=== PATIENT | female | born 1945 | race Caucasian/White ===

== ENCOUNTER 2023-01-24 07:26 | Observation (INO) | payer OTHER ==
--- OUTSIDE RECORDS SUMMARY | 2023-01-24 07:32 | XMS REPORT | Continuity of Care Document ---
:1945 Author Organization [facility] t Address [address] [place] [address] Care Team Providers Name Role Phone Tyshawn Kelley Attending Clinician [email or web address] Attending Clinician Unavailable ALBA JEFFERSON Attending Clinician Unavailable Alba Jefferson Attending Clinician Alba Jefferson Attending Clinician [phone] Lavinia Lei MD Attending Clinician LAVINIA LEI Attending Clinician Unavailable [email or web address] Admitting Clinician Unavailable ALBA JEFFERSON Admitting Clinician Unavailable Alba Jefferson Admitting Clinician Payers Payer Name Policy Type Policy Number Effective Date Expiration Date Karla emerson AETREED (MEDICARE [id number] 2021 REPLACEMENT PPO) 00:00:00 Problems Condition Condition Condition Status Onset Resolution Last Treating Co mments Source Name Details Category Date Date Treatment Clinician Date Abdominal Abdominal Problem Active 2021-08 [place] via pain Pain 0-20 Medical 00:00: 00 N82.3 N82.3 Diagnosis Active 2022-04-21 Mem oria Active 04-03 07:13:00 l 04/03/2022 00:00: Melvin herrera [facility] 00 Pike FISTULA OF FISTULA Diagnosis Active 2022-04-21 Memoria VAGINA TO OF VAGINA 07:13:00 l LARGE TO LARGE Jun INTESTINE INTESTINE Active [facility] Headache Headache Problem Active 2023-01-18 Memoria (finding) (finding) 11:37:24 l Active Jun Problem 01/18/2023 [facility] Distortion Distortio Problem Active 2023-01-18 Memoria of visual n of 11:37:24 l image visual [place] (disorder) image (disorder) Active Problem 01/18/2023 [facility] Seizure Seizure Problem Active 2023-01-18 Me moria (finding) (finding) 11:37:24 l Active Jun Problem 01/18/2023 [facility] No known No known Disease Unive rs active active ity of problems problems [facility] [place] [facility] Allergies, Adverse Reactions, Alerts Allergy Allergy Status Severity Reaction(s) Onset Inactive Treating Comm ents Source Name Type Date Date Clinician Ibuprofe Propensi Active Rash Univer s n ty to 6-13 ity of adverse 00:00: [place] reaction 00 Medical s Branch IBUPROFE DRUG Active Rash Univers N INGREDI 6-13 ity of 00:00: [place] 00 [facility] ciproflo ciproflo Active Memori a xacin xacin l [place] Social History Social Habit Start Date Stop Date Quantity Comments Source Sex Assigned At [facility] Social History 2022-04-10 2022-04-10 [facility] Niru wittirma 20:01:40 20:01:40 Alcohol intake 2017-02-08 2017-02-08 [facility] 00:00:00 00:00:00 Medical Branch Smoking Status Start Date Stop Date Source Tobacco smoking status [facility] Medications Ordered Filled Start Stop Current Ordering Indication Dosage Frequency Signature Comments Components Source Medication Medication Date Date Medication? Clinician (SIG) Name Name neostigmine No Route: IV, Memoria (ANES) 04-20 Drug form: l 18:58: INJ, ONCE, Stop date: 04/20/22 13:58:00 CDT neostigmine No Route: IV, Memoria (ANES) 04-20 Drug form: l 18:58: INJ, ONCE, Stop date: 04/20/22 13:58:00 CDT neostigmine No Route: IV, Memoria (ANES) 04-20 Drug form: l 18:58: INJ, ONCE, Stop date: 04/20/22 13:58:00 CDT neostigmine 2021-0 No Route: IV, Memoria (ANES) 04-20 Drug form: l 18:58: INJ, ONCE, Stop date: 04/20/22 13:58:00 CDT neostigmine 2021-0 No Route: IV, Memoria (ANES) 04-20 Drug form: l 18:58: INJ, ONCE, Stop date: 04/20/22 13:58:00 CDT neostigmine 2021-0 No Route: IV, Memoria (ANES) 04-20 Drug form: l 18:58: INJ, ONCE, Stop date: 04/20/22 13:58:00 CDT norepinephr 2021-0 No Route: IV, Memoria ine (ANES) 04-20 Drug form: l 18:54: INJ, ONCE, Stop date: 04/20/22 13:54:00 CDT norepinephr 2021-0 No Route: IV, Memoria ine (ANES) 04-20 Drug form: l 18:54: INJ, ONCE, Stop date: 04/20/22 13:54:00 CDT norepinephr 2021-0 No Route: IV, Memoria ine (ANES) 04-20 Drug form: l 18:54: INJ, ONCE, Stop date: 04/20/22 13:54:00 CDT norepinephr 2021-0 No Route: IV, Memoria ine (ANES) 04-20 Drug form: l 18:54: INJ, ONCE, Stop date: 04/20/22 13:54:00 CDT norepinephr 2021-0 No Route: IV, Memoria ine (ANES) 04-20 Drug form: l 18:54: INJ, ONCE, Stop date: 04/20/22 13:54:00 CDT norepinephr 2021-0 No Route: IV, Memoria ine (ANES) 04-20 Drug form: l 18:54: INJ, ONCE, Stop date: 04/20/22 13:54:00 CDT esmolol 2021-0 No Route: IV, Marco A mega (ANES) 04-20 Drug form: l 18:08: INJ, ONCE, Stop date: 04/20/22 13:08:00 CDT esmolol 2021-0 No Route: IV, Marco A mega (ANES) 04-20 Drug form: l 18:08: INJ, ONCE, Stop date: 04/20/22 13:08:00 CDT esmolol 2021-0 No Route: IV, Marco A mega (ANES) 04-20 Drug form: l 18:08: INJ, ONCE, Stop date: 04/20/22 13:08:00 CDT esmolol 2021-0 No Route: IV, Marco A mega (ANES) 04-20 Drug form: l 18:08: INJ, ONCE, Stop date: 04/20/22 13:08:00 CDT esmolol 2021-0 No Route: IV, Marco A mega (ANES) 04-20 Drug form: l 18:08: INJ, ONCE, Stop date: 04/20/22 13:08:00 CDT esmolol 2021-0 No Route: IV, Marco A mega (ANES) 04-20 Drug form: l 18:08: INJ, ONCE, Stop date: 04/20/22 13:08:00 CDT ePHEDrine 2021-0 No Route: IV, Me moria (ANES) 04-20 Drug form: l 18:03: INJ, ONCE, Stop date: 04/20/22 13:03:00 CDT glycopyrrol 2021-0 No Route: IV, Memoria ate (ANES) 04-20 Drug form: l 18:03: INJ, ONCE, Stop date: 04/20/22 13:03:00 CDT glycopyrrol 2021-0 No Route: IV, Memoria ate (ANES) 04-20 Drug form: l 18:03: INJ, ONCE, Stop date: 04/20/22 13:03:00 CDT ePHEDrine 2021-0 No Route: IV, Me moria (ANES) 04-20 Drug form: l 18:03: INJ, ONCE, Stop date: 04/20/22 13:03:00 CDT glycopyrrol 0 No Route: IV, Memoria ate (ANES) 04-20 Drug form: l 18:03: INJ, ONCE, Stop date: 04/20/22 13:03:00 CDT ePHEDrine 2021-0 No Route: IV, Me moria (ANES) 04-20 Drug form: l 18:03: INJ, ONCE, Stop date: 04/20/22 13:03:00 CDT glycopyrrol 2021-0 No Route: IV, Memoria ate (ANES) 04-20 Drug form: l 18:03: INJ, ONCE, Stop date: 04/20/22 13:03:00 CDT ePHEDrine 2021-0 No Route: IV, Me moria (ANES) 04-20 Drug form: l 18:03: INJ, ONCE, Stop date: 04/20/22 13:03:00 CDT glycopyrrol 2021-0 No Route: IV, Memoria ate (ANES) 04-20 Drug form: l 18:03: INJ, ONCE, Stop date: 04/20/22 13:03:00 CDT ePHEDrine 0 No Route: IV, Me moria (ANES) 04-20 Drug form: l 18:03: INJ, ONCE, Stop date: 04/20/22 13:03:00 CDT glycopyrrol 2021-0 No Route: IV, Memoria ate (ANES) 04-20 Drug form: l 18:03: INJ, ONCE, Stop date: 04/20/22 13:03:00 CDT ePHEDrine 2021-0 No Route: IV, Me moria (ANES) 04-20 Drug form: l 18:03: INJ, ONCE, Stop date: 04/20/22 13:03:00 CDT rocuronium 2021-0 No Route: IV, M emoria (ANES) 04-20 Drug form: l 17:43: INJ, ONCE, Stop date: 04/20/22 12:43:00 CDT dexamethaso 0 No Route: IV, Memoria ne (ANES) 04-20 Drug form: l 17:43: INJ, ONCE, Stop date: 04/20/22 12:43:00 CDT rocuronium 2021-0 No Route: IV, M emoria (ANES) 04-20 Drug form: l 17:43: INJ, ONCE, Stop date: 04/20/22 12:43:00 CDT dexamethaso 0 No Route: IV, Memoria ne (ANES) 04-20 Drug form: l 17:43: INJ, ONCE, Stop date: 04/20/22 12:43:00 CDT lidocaine 0 No Route: IV, Me moria (ANES) 04-20 Drug form: l 17:43: INJ, ONCE, Stop date: 04/20/22 12:43:00 CDT rocuronium 2021-0 No Route: IV, M emoria (ANES) 04-20 Drug form: l 17:43: INJ, ONCE, Stop date: 04/20/22 12:43:00 CDT dexamethaso 2021-0 No Route: IV, Memoria ne (ANES) 04-20 Drug form: l 17:43: INJ, ONCE, Stop date: 04/20/22 12:43:00 CDT lidocaine 2021-0 No Route: IV, Me moria (ANES) 04-20 Drug form: l 17:43: INJ, ONCE, Stop date: 04/20/22 12:43:00 CDT rocuronium 2021-0 No Route: IV, M emoria (ANES) 04-20 Drug form: l 17:43: INJ, ONCE, Stop date: 04/20/22 12:43:00 CDT dexamethaso 2021-0 No Route: IV, Memoria ne (ANES) 04-20 Drug form: l 17:43: INJ, ONCE, Stop date: 04/20/22 12:43:00 CDT lidocaine 2021-0 No Route: IV, Me moria (ANES) 04-20 Drug form: l 17:43: INJ, ONCE, Stop date: 04/20/22 12:43:00 CDT rocuronium 0 No Route: IV, M emoria (ANES) 04-20 Drug form: l 17:43: INJ, ONCE, Stop date: 04/20/22 12:43:00 CDT dexamethaso 0 No Route: IV, Memoria ne (ANES) 04-20 Drug form: l 17:43: INJ, ONCE, Stop date: 04/20/22 12:43:00 CDT lidocaine 0 No Route: IV, Me moria (ANES) 04-20 Drug form: l 17:43: INJ, ONCE, Stop date: 04/20/22 12:43:00 CDT rocuronium 0 No Route: IV, M emoria (ANES) 04-20 Drug form: l 17:43: INJ, ONCE, Stop date: 04/20/22 12:43:00 CDT dexamethaso No Route: IV, Memoria ne (ANES) 04-20 Drug form: l 17:43: INJ, ONCE, Stop date: 04/20/22 12:43:00 CDT lidocaine 0 No Route: IV, Me moria (ANES) 04-20 Drug form: l 17:43: INJ, ONCE, Stop date: 04/20/22 12:43:00 CDT lidocaine 2021-0 No Route: IV, Me moria (ANES) 04-20 Drug form: l 17:43: INJ, ONCE, Stop date: 04/20/22 12:43:00 CDT cefOXitin 2021-0 No Route: IV, Me moria (ANES) 04-20 Drug form: l 17:33: INJ, ONCE, Stop date: 04/20/22 12:33:00 CDT ondansetron No Route: IV, Memoria (ANES) 04-20 Drug form: l 17:33: INJ, ONCE, Stop date: 04/20/22 12:33:00 CDT cefOXitin 2021-0 No Route: IV, Me moria (ANES) 04-20 Drug form: l 17:33: INJ, ONCE, Stop date: 04/20/22 12:33:00 CDT ondansetron 2021-0 No Route: IV, Memoria (ANES) 04-20 Drug form: l 17:33: INJ, ONCE, Stop date: 04/20/22 12:33:00 CDT cefOXitin 2021-0 No Route: IV, Me moria (ANES) 04-20 Drug form: l 17:33: INJ, ONCE, Stop date: 04/20/22 12:33:00 CDT ondansetron 2021-0 No Route: IV, Memoria (ANES) 04-20 Drug form: l 17:33: INJ, ONCE, Stop date: 04/20/22 12:33:00 CDT cefOXitin 2021-0 No Route: IV, Me moria (ANES) 04-20 Drug form: l 17:33: INJ, ONCE, Stop date: 04/20/22 12:33:00 CDT ondansetron 2021-0 No Route: IV, Memoria (ANES) 04-20 Drug form: l 17:33: INJ, ONCE, Stop date: 04/20/22 12:33:00 CDT cefOXitin 2021-0 No Route: IV, Me moria (ANES) 04-20 Drug form: l 17:33: INJ, ONCE, Stop date: 04/20/22 12:33:00 CDT ondansetron 2021-0 No Route: IV, Memoria (ANES) 04-20 Drug form: l 17:33: INJ, ONCE, Stop date: 04/20/22 12:33:00 CDT cefOXitin 2021-0 No Route: IV, Me moria (ANES) 04-20 Drug form: l 17:33: INJ, ONCE, Stop date: 04/20/22 12:33:00 CDT ondansetron 2021-0 No Route: IV, Memoria (ANES) 04-20 Drug form: l 17:33: INJ, ONCE, Stop date: 04/20/22 12:33:00 CDT fentaNYL 2021-0 No Route: IV, Mem oria (ANES) 9- Drug form: l 17:28: INJ, ONCE, Stop date: 04/20/22 12:28:00 CDT propofol 2021-0 No Route: IV, Mem oria (ANES) 9- Drug form: l 17:28: INJ, ONCE, Stop date: 04/20/22 12:28:00 CDT fentaNYL 2021-0 No Route: IV, Mem oria (ANES) 9- Drug form: l 17:28: INJ, ONCE, Stop date: 04/20/22 12:28:00 CDT propofol 2021-0 No Route: IV, Mem oria (ANES) 9- Drug form: l 17:28: INJ, ONCE, Stop date: 04/20/22 12:28:00 CDT fentaNYL 2021-0 No Route: IV, Mem oria (ANES) 04-20 Drug form: l 17:28: INJ, ONCE, Stop date: 04/20/22 12:28:00 CDT propofol 2021-0 No Route: IV, Mem oria (ANES) 04-20 Drug form: l 17:28: INJ, ONCE, Stop date: 04/20/22 12:28:00 CDT fentaNYL 2021-0 No Route: IV, Mem oria (ANES) 9- Drug form: l 17:28: INJ, ONCE, Stop date: 04/20/22 12:28:00 CDT propofol 202-0 No Route: IV, Mem oria (ANES) 9- Drug form: l 17:28: INJ, ONCE, Stop date: 04/20/22 12:28:00 CDT fentaNYL 2021-0 No Route: IV, Mem oria (ANES) 9- Drug form: l 17:28: INJ, ONCE, Stop date: 04/20/22 12:28:00 CDT propofol 202-0 No Route: IV, Mem oria (ANES) 9- Drug form: l 17:28: INJ, ONCE, Stop date: 04/20/22 12:28:00 CDT fentaNYL 2022-0 No Route: IV, Mem oria (ANES) 9-19 Drug form: l 17:28: INJ, ONCE, Jun 00 Stop date: 04/20/22 12:28:00 CDT propofol No Route: IV, Mem oria (ANES) 9-19 Drug form: l 17:28: INJ, ONCE, Jun 00 Stop date: 04/20/22 12:28:00 CDT Lactated No Route: IV, Mem oria Ringers 9-19 Total l Injection 16:50: Volume: Margie nn IV (ANES) 00 1,000, 1000 mL Start date: 04/20/22 11:50:00 CDT, Stop date: 04/20/22 12:50:00 CDT Lactated No Route: IV, Mem oria Ringers 9-19 Total l Injection 16:50: Volume: Margie nn IV (ANES) 00 1,000, 1000 mL Start date: 04/20/22 11:50:00 CDT, Stop date: 04/20/22 12:50:00 CDT Lactated No Route: IV, Mem oria Ringers 9-19 Total l Injection 16:50: Volume: Margie nn IV (ANES) 00 1,000, 1000 mL Start date: 04/20/22 11:50:00 CDT, Stop date: 04/20/22 12:50:00 CDT Lactated No Route: IV, Mem oria Ringers 9-19 Total l Injection 16:50: Volume: Margie nn IV (ANES) 00 1,000, 1000 mL Start date: 04/20/22 11:50:00 CDT, Stop date: 04/20/22 12:50:00 CDT Lactated No Route: IV, Mem oria Ringers 9-19 Total l Injection 16:50: Volume: Margie nn IV (ANES) 00 1,000, 1000 mL Start date: 04/20/22 11:50:00 CDT, Stop date: 04/20/22 12:50:00 CDT Lactated No Route: IV, Mem oria Ringers 9-19 Total l Injection 16:50: Volume: Margie nn IV (ANES) 00 1,000, 1000 mL Start date: 04/20/22 11:50:00 CDT, Stop date: 04/20/22 12:50:00 CDT Lactated 2022-0 No 1,000 mL, Marco A mega Ringers 9-19 Rate: 75 l Injection 16:38: ml/hr, Melvin n IV 1,000 mL 00 Infuse over: 13.3 hr, Route: IV, Dosing Weight 71.045 kg, Total Volume: 1,000, Start date: 04/20/22 11:38:00 CDT, Duration: 30 day, Stop date: 05/20/22 11:37:00 CDT, BSA: 1.81 m2, 0 Lactated 2022-0 No 1,000 mL, Marco A mega Ringers 9-19 Rate: 75 l Injection 16:38: ml/hr, Melvin n IV 1,000 mL 00 Infuse over: 13.3 hr, Route: IV, Dosing Weight 71.045 kg, Total Volume: 1,000, Start date: 04/20/22 11:38:00 CDT, Duration: 30 day, Stop date: 05/20/22 11:37:00 CDT, BSA: 1.81 m2, 0 Lactated 2022-0 No 1,000 mL, Marco A mega Ringers 9-19 Rate: 75 l Injection 16:38: ml/hr, Melvin n IV 1,000 mL 00 Infuse over: 13.3 hr, Route: IV, Dosing Weight 71.045 kg, Total Volume: 1,000, Start date: 04/20/22 11:38:00 CDT, Duration: 30 day, Stop date: 05/20/22 11:37:00 CDT, BSA: 1.81 m2, 0 Lactated 2022-0 No 1,000 mL, Marco A meag Ringers 9-19 Rate: 75 l Injection 16:38: ml/hr, Melvin n IV 1,000 mL 00 Infuse over: 13.3 hr, Route: IV, Dosing Weight 71.045 kg, Total Volume: 1,000, Start date: 04/20/22 11:38:00 CDT, Duration: 30 day, Stop date: 05/20/22 11:37:00 CDT, BSA: 1.81 m2, 0 Lactated 2022-0 No 1,000 mL, Marco A mega Ringers 04-20 Rate: 75 l Injection 16:38: ml/hr, Melvin n IV 1,000 mL 00 Infuse over: 13.3 hr, Route: IV, Dosing Weight 71.045 kg, Total Volume: 1,000, Start date: 04/20/22 11:38:00 CDT, Duration: 30 day, Stop date: 05/20/22 11:37:00 CDT, BSA: 1.81 m2, 0 Lactated 0 No 1,000 mL, Marco A mega [place] 04-20 Rate: 75 l Injection 16:38: ml/hr, Melvin n IV 1,000 mL 00 Infuse over: 13.3 hr, Route: IV, Dosing Weight 71.045 kg, Total Volume: 1,000, Start date: 04/20/22 11:38:00 CDT, Duration: 30 day, Stop date: 05/20/22 11:37:00 CDT, BSA: 1.81 m2, 0 CoQ10 0 Yes PO, Daily, Memori a 9-09 0 l 20:16: Refill(s) [place]ike selenium 0 Yes PO, Daily, Mem oria 9-09 0 l 20:16: Refill(s) Jun Vitamin C 0 Yes Daily, 0 Marco A mega 9-09 Refill(s) l 20:16: [place] 00 Vitamin D3 0 Yes 0 Memoria 9-09 Refill(s) l 20:16: Jun 00 CoQ10 2021-0 Yes PO, Daily, Memori a 9-09 0 l 20:16: Refill(s) Jun selenium 2021-0 Yes PO, Daily, Mem oria 9-09 0 l 20:16: Refill(s) [place] Vitamin C 2021-0 Yes Daily, 0 Marco A mega 9-09 Refill(s) l 20:16: Jun 00 Vitamin D3 2021-0 Yes 0 Memoria 9-09 Refill(s) l 20:16: Jun 00 CoQ10 2021-0 Yes PO, Daily, Memori a 9-09 0 l 20:16: Refill(s) Jun 00 selenium 2021-0 Yes PO, Daily, Mem oria 9-09 0 l 20:16: Refill(s) Vitamin C 0 Yes Daily, 0 Marco A mega 9-09 Refill(s) l 20:16: Vitamin D3 0 Yes 0 Memoria 9-09 Refill(s) l 20:16: CoQ10 0 Yes PO, Daily, Memori a 9-09 0 l 20:16: Refill(s) selenium 0 Yes PO, Daily, Mem oria 9-09 0 l 20:16: Refill(s) Vitamin C 0 Yes Daily, 0 Marco A mega 9-09 Refill(s) l 20:16: Vitamin D3 Yes 0 Memoria 9-09 Refill(s) l 20:16: CoQ10 0 Yes PO, Daily, Memori a 9-09 0 l 20:16: Refill(s) selenium 0 Yes PO, Daily, Mem oria 9-09 0 l 20:16: Refill(s) Vitamin C 0 Yes Daily, 0 Marco A mega 9-09 Refill(s) l 20:16: Vitamin D3 0 Yes 0 Memoria 9-09 Refill(s) l 20:16: Vitamin C 0 Yes Daily, 0 Marco A mega 9-09 Refill(s) l 20:16: Vitamin D3 0 Yes 0 Memoria 9-09 Refill(s) l 20:16: CoQ10 0 Yes PO, Daily, Memori a 9-09 0 l 20:16: Refill(s) selenium 2021-0 Yes PO, Daily, Mem oria 9-09 0 l 20:16: Refill(s) Zinc 0 Yes 140 mg, Memoria - PO, Daily, l 20:15: 0 Refill(s) Zinc 0 Yes 140 mg, Memoria - PO, Daily, l 20:15: 0 Refill(s) Zinc 0 Yes 140 mg, Memoria 9- PO, Daily, l 20:15: 0 Refill(s) Zinc 2021-0 Yes 140 mg, Memoria 04-10 PO, Daily, l 20:15: 0 Refill(s) Zinc 2021-0 Yes 140 mg, Memoria - PO, Daily, l 20:15: 0 [place] 00 Refill(s) Zinc 2021-0 Yes 140 mg, Memoria 04-10 PO, Daily, l 20:15: 0 Refill(s) amoxicillin 2019-0 Yes [id number] 500mg Take 1 Univers 500 mg 3-28 capsule by ity of capsule 00:00: mouth 3 [place] (three) [facility] times [facility] daily. phenazopyri Yes [id number] 200mg Take 1 Univers dine 200 mg 3-28 tablet by ity of tablet 00:00: mouth 3 [place] ([facility] daily. foLIC acid Yes 1mg Take 1 mg Un ashok 1 mg tablet 7-05 by mouth ity of 18:05: daily. [address] multivitami Yes 1{tbl} Take 1 Un ashok n, 7-05 tablet by ity of tx-minerals 18:05: mouth [place] ([place] [id number] daily. Medical MULTIVITAMI Branch N) tablet simvastatin Yes 20mg Take 20 mg Univers 20 mg 7-05 by mouth ity of tablet 18:05: daily. [address] cephalexin cephalexin No 1capsul Q6H cephalexin [facility] 500 mg 500 mg e(s) 500 mg Medical capsule capsule capsule Take 1 Take 1 Take 1 capsule capsule capsule every 6 every 6 every 6 hours by hours by hours by oral route oral route oral route for 5 days. for 5 days. for 5 days. Co Q-10 Co Q-10 No Co Q-10 [facility] hydrocodone hydrocodone No hydrocodon [facility] 5 5 e 5 Medical mg-acetamin mg-acetamin mg-acetami ophen 325 ophen 325 nophen 325 mg tablet mg tablet mg tablet TAKE 1 TAKE 1 TAKE 1 TABLET BY TABLET BY TABLET BY MOUTH EVERY MOUTH EVERY MOUTH 6 HOURS FOR 6 HOURS FOR EVERY 6 5 DAYS 5 DAYS HOURS FOR 5 DAYS ketorolac ketorolac No 1 Q6H ketorolac [facility] 10 mg 10 mg 10 mg Medical tablet Take tablet Take tablet 1 tablet 1 tablet Take 1 every 6 every 6 tablet hours by hours by every 6 oral route oral route hours by for 5 days. for 5 days. oral route for 5 days. metronidazo metronidazo No metronidaz [facility] le 500 mg le 500 mg ole 500 mg Medical tablet TAKE tablet TAKE tablet 1 TABLET BY 1 TABLET BY TAKE 1 MOUTH AT MOUTH AT TABLET BY 2PM, 3PM, 2PM, 3PM, MOUTH AT AND 10PM AND 10PM 2PM, 3PM, THE DAY THE DAY AND 10PM BEFORE BEFORE THE DAY SURGERY SURGERY BEFORE SURGERY neomycin neomycin No neomycin [place] via 500 mg 500 mg 500 mg Medical tablet TAKE tablet TAKE tablet 2 TABLETS 2 TABLETS TAKE 2 BY MOUTH AT BY MOUTH AT TABLETS BY 2PM,3PM AND 2PM,3PM AND MOUTH AT 10PM, THE 10PM, THE 2PM,3PM DAY BEFORE DAY BEFORE AND 10PM, SURGERY SURGERY THE DAY BEFORE SURGERY Suprep Suprep No Suprep [facility] Bowel Prep Bowel Prep Bowel Prep Medical Kit 17.5 Kit 17.5 Kit 17.5 gram-3.13 gram-3.13 gram-3.13 gram-1.6 gram-1.6 gram-1.6 gram oral gram oral gram oral solution solution solution TAKE 1 TAKE 1 TAKE 1 BOTTLE BY BOTTLE BY BOTTLE BY MOUTH 12PM MOUTH 12PM MOUTH 12PM (NOON), THE (NOON), THE (NOON), DAY BEFORE DAY BEFORE THE DAY SURGERY SURGERY BEFORE SURGERY Suprep Suprep No 16ounce Suprep [facility] Bowel Prep Bowel Prep (s) Bowel Prep Medical Kit 17.5 Kit 17.5 Kit 17.5 gram-3.13 gram-3.13 gram-3.13 gram-1.6 gram-1.6 gram-1.6 gram oral gram oral gram oral solution solution solution Take 16 Take 16 Take 16 ounces by ounces by ounces by oral route. oral route. oral route. amoxicillin amoxicillin No amoxicilli [facility] 500 500 n 500 Medical mg-potassiu mg-potassiu mg-potassi m m um clavulanate clavulanate clavulanat 125 mg 125 mg e 125 mg tablet tablet tablet cephalexin cephalexin No cephalexin [facility] 500 mg 500 mg 500 mg Medical capsule capsule capsule TAKE 1 TAKE 1 TAKE 1 CAPSULE BY CAPSULE BY CAPSULE BY MOUTH EVERY MOUTH EVERY MOUTH 6 HOURS FOR 6 HOURS FOR EVERY 6 5 DAYS 5 DAYS HOURS FOR 5 DAYS Co Q-10 Co Q-10 No Co Q-10 [facility] hydrocodone hydrocodone No hydrocodon [facility] 5 5 e 5 Medical mg-acetamin mg-acetamin mg-acetami ophen 325 ophen 325 nophen 325 mg tablet mg tablet mg tablet TAKE 1 TAKE 1 TAKE 1 TABLET BY TABLET BY TABLET BY MOUTH EVERY MOUTH EVERY MOUTH 6 HOURS FOR 6 HOURS FOR EVERY 6 5 DAYS 5 DAYS HOURS FOR 5 DAYS ketorolac ketorolac No 1 Q6H ketorolac [facility] 10 mg 10 mg 10 mg Medical tablet Take tablet Take tablet 1 tablet 1 tablet Take 1 every 6 every 6 tablet hours by hours by every 6 oral route oral route hours by for 5 days. for 5 days. oral route for 5 days. metronidazo metronidazo No metronidaz [facility] le 500 mg le 500 mg ole 500 mg Medical tablet TAKE tablet TAKE tablet 1 TABLET BY 1 TABLET BY TAKE 1 MOUTH AT MOUTH AT TABLET BY 2PM, 3PM, 2PM, 3PM, MOUTH AT AND 10PM AND 10PM 2PM, 3PM, THE DAY THE DAY AND 10PM BEFORE BEFORE THE DAY SURGERY SURGERY BEFORE SURGERY neomycin neomycin No neomycin [place] via 500 mg 500 mg 500 mg Medical tablet TAKE tablet TAKE tablet 2 TABLETS 2 TABLETS TAKE 2 BY MOUTH AT BY MOUTH AT TABLETS BY 2PM,3PM AND 2PM,3PM AND MOUTH AT 10PM, THE 10PM, THE 2PM,3PM DAY BEFORE DAY BEFORE AND 10PM, SURGERY SURGERY THE DAY BEFORE SURGERY nystatin nystatin No nystatin [place] via 100,000 100,000 100,000 Medica l unit/gram unit/gram unit/gram topical topical topical cream APPLY cream APPLY cream 1 1 APPLY 1 APPLICATION APPLICATION APPLICATIO EXTERNALLY EXTERNALLY N TWICE A DAY TWICE A DAY EXTERNALLY FOR 10 DAYS FOR 10 DAYS TWICE A DAY FOR 10 DAYS Suprep Suprep No Suprep [facility] Bowel Prep Bowel Prep Bowel Prep Medical Kit 17.5 Kit 17.5 Kit 17.5 gram-3.13 gram-3.13 gram-3.13 gram-1.6 gram-1.6 gram-1.6 gram oral gram oral gram oral solution solution solution TAKE 1 TAKE 1 TAKE 1 BOTTLE BY BOTTLE BY BOTTLE BY MOUTH 12PM MOUTH 12PM MOUTH 12PM (NOON), THE (NOON), THE (NOON), DAY BEFORE DAY BEFORE THE DAY SURGERY SURGERY BEFORE SURGERY Vital Signs Vital Name Observation Time Observation Value Comments Source Height 2022-02-04 00:00:00 64 [in_i] Darwin phillips BMI (Body Mass 2022-02-04 00:00:00 27.5 kg/m2 [facility] Medical Index) Body Weight 2022-02-04 00:00:00 160 [lb_av] Darwin phillips Systolic blood 2019-10-28 14:19:00 145 mm[Hg] [facility] Diastolic blood 2019-10-28 14:19:00 65 mm[Hg] [facility] pressure [facility] Heart rate 2019-10-28 14:19:00 64 /min [facility] Body temperature 2019-10-28 14:19:00 37.5 Danielle [facility] Respiratory rate 2019-10-28 14:19:00 18 /min [facility] Body weight 2019-10-28 14:19:00 73.936 kg [facility] BMI 2019-10-28 14:19:00 27.98 kg/m2 [facility] Oxygen saturation in 2019-10-28 14:19:00 97 /min [facility] Systolic blood 2019-10-28 14:19:00 145 mm[Hg] [facility] Diastolic blood 2019-10-28 14:19:00 65 mm[Hg] [facility] pressure [facility] Heart rate 2019-10-28 14:19:00 64 /min [facility] Body temperature 2019-10-28 14:19:00 37.5 Danielle [facility] Respiratory rate 2019-10-28 14:19:00 18 /min [facility] Body weight 2019-10-28 14:19:00 73.936 kg [facility] BMI 2019-10-28 14:19:00 27.98 kg/m2 [facility] Oxygen saturation in 2019-10-28 14:19:00 97 /min [facility] Arterial blood by [facility] Pulse oximetry Branch Systolic (mm Hg) 2023-01-08 18:29:00 [facility] Diastolic (mm Hg) 2023-01-08 18:29:00 [facility] Heart Rate 2023-01-08 18:29:00 [facility] Height 2023-01-08 18:29:00 5 [ft_i] [facility] Weight 2023-01-08 18:29:00 [facility] BMI Calculated 2023-01-08 18:29:00 [facility] Respitory Rate 2022-04-20 20:25:00 [facility] Systolic (mm Hg) 2022-04-20 20:25:00 [facility] Jun Diastolic (mm Hg) 2022-04-20 20:25:00 [facility] Respitory Rate 2022-04-20 19:45:00 [facility] Respitory Rate 2022-04-20 19:30:00 [facility] Systolic (mm Hg) 2022-04-20 19:30:00 [facility] Jun Diastolic (mm Hg) 2022-04-20 19:30:00 [facility] Systolic (mm Hg) 2022-04-20 19:15:00 [facility] [place] Diastolic (mm Hg) 2022-04-20 19:15:00 [facility] Heart Rate 2022-04-20 16:10:00 [facility] Height 2022-04-20 14:08:00 162.56 cm [facility] Weight 2022-04-20 14:08:00 [facility] BMI Calculated 2022-04-20 14:08:00 [facility] al Jun Height 2022-04-10 19:58:00 162.56 cm [facility] Jun Weight 2022-04-10 19:58:00 [facility] Jun BMI Calculated 2022-04-10 19:58:00 [facility] al Pike Procedures Procedure Date / Time Performing Clinician Source Performed CT, abdomen + pelvis, w/ 2022-02-04 00:00:00 [place] via Medical contrast NOTICE OF PRIVACY 2019-10-28 14:53:46 Doctor Unassigned, No Univ [facility] PRACTICES Name Medical Branch URINALYSIS 2019-10-28 14:29:00 Lavinia Lei o f [facility] CONSENT/REFUSAL FOR 2019-10-28 14:15:17 Doctor Unassigned, No [facility] [place] [facility] Name [facility] Hysterectomy (Ovaries 1969-08-02 00:00:00 [facility] Medical Remain) Tonsillectomy 1954-08-02 00:00:00 [facility] Cystectomy [facility] Repair of vaginal [facility] nn fistula Hysterectomy [facility] Plan of Care Planned Activity Planned Date Details Comments Source Future Appointment 2027-02-11 00:00:00 Edwin Blevins, [address]; [address], [place] [address] Instructions [facility] Medical Encounters Start End Encounter Admission Attending Care Care Encounter Source Date/Time Date/Time Type Type Clinicians Facility Department ID 2023-03-03 2023-03-03 Outpatient MHIE MHIE [id number] Memoria 13:30:00 13:30:00 00 gordon FerroJun 2023-02-19 2023-02-19 Outpatient MHIE MHIE [id number] [facility] 10:15:00 10:15:00 03 gordon Barahona 2023-01-15 2023-01-16 Outpatient MHIE MNA [id number] [facility] 20:30:00 04:59:59 Neurology 04 l Haile Barahona 2023-01-15 2023-01-15 Outpatient ALEX KelleySCHER MHMISCHER [id number] 15:30:00 23:59:59 Tyshawn 04 Ab 2023-01-15 2023-01-15 Ambulatory MHIE MNA [id number] Memoria 18:00:00 18:00:00 Pre-Reg Neurology 02 gordon Barahona 2023-01-15 2023-01-15 Outpatient MHIE MHIE [id number] [facility]oria 15:30:00 15:30:00 04 gordon Barahona 2023-01-15 2023-01-15 Outpatient MHIE MHIE [id number] [facility]oria 13:00:00 13:00:00 02 gordon Barahona 2023-01-15 2023-01-15 Outpatient CHRISTINA KelleyMISCHER MHMISCHER [id number] 13:00:00 13:00:00 Tyshawn 02 Ab 2023-01-08 2023-01-09 Outpatient MHIE MNA [id number] [facility] 18:30:00 04:59:59 Neurology 01 l Graysonmaria e Barahona 2023-01-08 2023-01-08 Outpatient Allie, MISCHER MISCHER [id number] 13:30:00 23:59:59 Tyshawn Oriana Berger 2023-01-08 2023-01-08 Outpatient MHIE MHIE [id number] [facility] 13:30:00 13:30:00 01 gordon Barahona 2022-06-09 2022-06-09 Outpatient GC_BCSS_Isa PRIV PRIV [id number] [facility] 00:00:00 00:00:00 acson_T5 [id number] Medic al 2022-06-09 2022-06-09 Alba [facility]IV [facility] [id number] [facility] 00:00:00 00:00:00 Li [facility] Med carmelita MD: [id number] GC[facility]BCSS[facility], [address], [place] [address] , Ph. 2022-06-05 2022-06-05 Outpatient GC_BCSS_Isa PRIV PRIV [id number] [facility] 00:00:00 00:00:00 acson_T5 [id number] Medic al 2022-06-03 2022-06-03 Outpatient GC_BCSS_Isa PRIV PRIV [id number] [facility] 00:00:00 00:00:00 acson_T5 [id number] Medic al 2022-05-13 2022-05-13 Outpatient GC_BCSS_Isa PRIV PRIV [id number] [facility] 00:00:00 00:00:00 acson_T5 [id number] Medic al 2022-05-13 2022-05-13 Edwin Lee [facility]IV [facility] 00:00:00 00:00:00 Gen [facility] Medic bridgette PACK: [id number] [facility], [address], [place] [address] , Ph. 2022-05-12 2022-05-12 Outpatient GC_BCSS_Isa PRIV PRIV [id number] [facility] 00:00:00 00:00:00 acson_T5 [id number] Medic al 2022-05-05 2022-05-05 Outpatient GC_BCSS_Isa PRIV PRIV [id number] [facility] 00:00:00 00:00:00 acson_T5 [id number] Medic al 2022-05-04 2022-05-04 Outpatient GC_BCSS_Isa PRIV PRIV [id number] [facility] 00:00:00 00:00:00 acson_T5 [id number] Medic al 2022-04-20 2022-04-20 Observatio nullFlavo [facility] [id number] [facility] 18:17:00 20:22:00 n r Pike 00 l [facility] 2022-04-20 2022-04-20 Observatio nullFlavo [facility] 4074 [id number] [facility] 18:17:00 20:22:00 n r Jun 00 l [facility] 2022-04-20 2022-04-20 Outpatient LI, MHBL BL [id number] MHBL 13:17:00 15:22:00 [facility] 2022-04-20 2022-04-20 Outpatient Li, [place] [id number] 13:17:00 15:22:00 [facility] 00 [facility] 2022-04-20 2022-04-20 Outpatient Li, MHPL [facility] [id number] 13:17:00 15:22:00 [facility] 00 [facility] 2022-04-17 2022-04-17 Outpatient GC_BCSS_Isa PRIV PRIV [id number] [facility] 00:00:00 00:00:00 acson_T5 [id number] Medic al 2022-04-03 2022-04-03 Outpatient GC_BCSS_Isa PRIV PRIV [id number] [facility] 00:00:00 00:00:00 acson_T5 [id number] Medic al 2022-04-01 2022-04-01 Outpatient GC_BCSS_Isa PRIV PRIV [id number] [facility] 00:00:00 00:00:00 acson_T5 [id number] Medic al 2022-03-18 2022-03-18 Outpatient GC_BCSS_Isa PRIV PRIV [id number] [facility] 00:00:00 00:00:00 acson_T5 [id number] Medic al 2022-03-03 2022-03-03 Outpatient GC_BCSS_Isa PRIV PRIV [id number] [facility] 00:00:00 00:00:00 acson_T5 [id number] Medic al 2022-02-27 2022-02-27 Outpatient GC_BCSS_Isa PRIV PRIV [id number] [facility] 00:00:00 00:00:00 acson_T5 [id number] Medic al 2022-02-09 2022-02-09 Outpatient GC_BCSS_Isa PRIV PRIV [id number] [facility] 10:51:00 10:51:00 acson_T5 [id number] Medic al 2022-02-06 2022-02-06 Outpatient GC_BCSS_Isa PRIV PRIV [id number] [facility] 12:34:00 12:34:00 acson_T5 [id number] Medic al 2022-02-04 2022-02-04 Outpatient GC_BCSS_Isa PRIV PRIV [id number] [facility] 02:57:00 02:57:00 acson_T5 [id number] Medic al 2022-02-04 2022-02-04 Outpatient Li, PRIV PRIV [id number] 00:00:00 00:00:00 [facility] [id number] 2022-02-04 2022-02-04 [facility]IV [facility] [id number] [facility] 00:00:00 00:00:[facility] [id number] [facility]SS[facility], [address], [place] [address] , Ph. 2022-01-29 2022-01-29 Outpatient GC_BCSS_Isa PRIV PRIV [id number] [facility] 05:43:00 05:43:00 acson_T5 [id number] Medic al 2022-01-12 2022-01-12 Outpatient GC_BCSS_Isa PRIV PRIV [id number] [facility] 05:21:00 05:21:00 acson_T5 [id number] Medic al 2022-01-09 2022-01-09 Outpatient GC_BCSS_Isa PRIV PRIV [id number] [facility] 11:10:00 11:10:00 acson_T5 [id number] Medic al 2019-10-28 2019-10-28 Emergency [facility] [id number] 09:21:49 10:22:00 Lavinia Anderson [id number] [place] [id number] [place] [id number] [facility] 2019-10-28 2019-10-28 Emergency [facility] [id number] Univers 09:21:49 10:22:00 Lavinia [place] [id number] i [facility] [place] [id number] [facility] [id number] 2019-10-28 2019-10-28 Emergency X [facility] ERT [id number] Univers 09:21:49 09:21:49 LAVINIA [facility]pathi of [facility] Results Test Description Test Time Test Comments Results Result Comments Source [facility] 2022-04-20 14:08:00 Test Item Value Reference Range Interpretation Comme nts Coronavirus (COVID-19) [place] (test code = Not Detected (04/20/22 9:08 AM) Coronavirus (COVID-19) [place]) [place] [facility]67 14:08:00 Test Item Value Reference Range Interpretation Comments Coronavirus (COVID-19) Not Detected (04/20/22 [place] (test code = 9:08 AM) Coronavirus (COVID-19) [place]) [place] [facility]TSTBDJTOBE6495-79-54 14:08:00 Test Item Value Reference Range Interpretation Comments Coronavirus (COVID-19) Not Detected (04/20/22 [place] (test code = 9:08 AM) Coronavirus (COVID-19) [place]) [place] [facility]glgasmKEHUNXPOQT6926-45-41 14:08:00 Test Item Value Reference Range Interpretation Comments Coronavirus (COVID-19) Not Detected (04/20/22 [place] (test code = 9:08 AM) Coronavirus (COVID-19) [place]) [place] [facility] Hospital[facility]ulzdktDHIARSSWAY3015-50-39 14:08:00 Test Item Value Reference Range Interpretation Comments Coronavirus (COVID-19) Not Detected (04/20/22 [place] (test code = 9:08 AM) Coronavirus (COVID-19) [place]) [facility]7729-81-58 14:08:00 Test Item Value Reference Range Interpretation Comments Coronavirus (COVID-19) Not Detected (04/20/22 [place] (test code = 9:08 AM) Coronavirus (COVID-19) [place]) [facility] CenterZaaelduJYZPFLDAYJ5293-31-58 14:57:00 Test Item Value Reference Range Interpretation Comments APPEARANCE (test code = Turbid Clear A 4936532045) COLOR (test code = Viki Yellow A 5334268483) PH (test code = 4.8-8.0 5629613952) SP GRAVITY (test code = 1.003-1.030 9070407401) GLU U QUAL (test code = Normal Normal 6547635381) BLOOD (test code = 3+ Negative A 9925376562) KETONES (test code = Negative Negative 1662085874) PROTEIN (test code = 100 mg/dL Negative A 2887-8) UROBILIN (test code = Normal Normal 2008913948) BILIRUBIN (test code = Negative Negative 5994671232) NITRITE (test code = Positive Negative A 2092801642) LEUK TERESE (test code = 250/uL Negative A 6226391842) RBC/HPF (test code = >182 See_Comment H [Autom ated message] [id number]) The system [employer] generated this result transmit magalys reference range : 0 - 3 HPF. The refe rence range was not u sed to interpret th is result as normal/abnormal . WBC/HPF (test code = >182 See_Comment H [Autom ated message] [id number]) The system [employer] generated this result transmit magalys reference range : 0 - 5 HPF. The refe rence range was not u sed to interpret th is result as normal/abnormal . BACTERIA (test code = Many Negative A 2705213125) MUCOUS (test code = Moderate Negative LPF A 7112296990) WBC CLUMPS (test code = >182 See_Comment H [Au tomated message] 4634351807) The system [employer] generated this result transmit magalys reference range : <=1 HPF. The refere nce range was not u sed to interpret th is result as normal/abnormal . JEWEL EPITH (test code = See_Comment H [Aut omated message] [id number]) The system [employer] generated this result transmit magalys reference range : <=1 HPF. The refere nce range was not u sed to interpret th is result as normal/abnormal . Lab Interpretation (test Abnormal code = 04676-7) [facility]
[2023-01-24] MEDS ORDERED: ASPIRIN 81 MG CHEWABLE TABLET ONE (08:19)
[2023-01-24] MEDS ORDERED: NA CHLORIDE 0.9% 1,000 ML ONE (08:19)
[2023-01-24] MEDS ORDERED: FAMOTIDINE 20 MG/2 ML VIAL IV ONE (08:19)
[2023-01-24] MEDS ORDERED: METOPROLOL TAR 25 MG TAB ONE (08:19)
[2023-01-24 08:22] LABS: Lymphocytes % 32.3 % (15.3-44.8); MCV 91.2 fL (80-100); MPV 8.8 fL (7.6-11.3); RBC Red Blood Cell Count 4.39 M/uL (3.86-4.86)
[2023-01-24 08:27] LABS: Protime INR 0.96
--- NOTE | 2023-01-24 08:29 | RAD REPORT ---
EXAM DESCRIPTION: RAD - Chest Single View - 01/24/2023 8:22 am CLINICAL HISTORY: CHEST PAIN Chest pain. COMPARISON: Chest Single View dated 06/19/2017; Chest Pa And Lat (2 Views) dated 01/19/2017; ABDOMEN ACUTE SERIES dated 08/31/2010 FINDINGS: Portable technique limits examination quality. The lungs are grossly clear. The heart is normal in size. No displaced fractures. IMPRESSION: No acute intrathoracic process suspected.
--- NOTE | 2023-01-24 08:41 | EDPHYS ---
Physician Documentation [facility] Name: Stefany Skaggs Age: 77 yrs Sex: Female : 1945 Arrival Date: 01/24/2023 Time: 07:26 Bed 8 Private MD: Ab Rodriguez E ED Physician Andriy Carver HPI: 01/24 07:56 This 77 yrs old Female presents to ER via Ambulatory with complaints of arm thania vein swelling. 07:56 The patient or guardian complains of pain, that is acute. The complaints affect the thania right bicep, dorsal aspect of right forearm, right tricep and palmar aspect of right forearm, left bicep, dorsal aspect of left forearm, left tricep and palmar aspect of left forearm. Context: The problem was sustained at home, resulted from unknown cause. Onset: The symptoms/episode began/occurred 3 day(s) ago. Treatment prior to arrival includes: no previous treatment. Modifying factors: The symptoms are alleviated by nothing. the symptoms are aggravated by nothing. The patient or guardian reports chest pain that is located primarily in the substernal area. The pain does not radiate. Associated signs and symptoms: Pertinent positives: pain. Historical: - Allergies: 07:42 Cipro; aa5 07:42 Pneumovax 23 (PPSV); aa5 - Home Meds: 11:42 None [Active]; iw - PMHx: 07:42 Seizures; heart arrythmia; aa5 - PSHx: 07:42 heart ablation; aa5 - Immunization history:: Adult Immunizations unknown. - Social history:: Smoking status: Patient denies any tobacco usage or history of. - Family history:: not pertinent. ROS: 07:56 Constitutional: Negative for fever, chills, and weight loss, Eyes: Negative for injury, thania pain, redness, and discharge, ENT: Negative for injury, pain, and discharge, Neck: Negative for injury, pain, and swelling, Respiratory: Negative for shortness of breath, cough, wheezing, and pleuritic chest pain, Abdomen/GI: Negative for abdominal pain, nausea, vomiting, diarrhea, and constipation, Back: Negative for injury and pain, : Negative for injury, bleeding, discharge, and swelling, MS/Extremity: Negative for injury and deformity, Skin: Negative for injury, rash, and discoloration, Neuro: Negative for headache, weakness, numbness, tingling, and seizure, Psych: Negative for depression, anxiety, suicide ideation, homicidal ideation, and hallucinations, Allergy/Immunology: Negative for hives, rash, and allergies, Endocrine: Negative for neck swelling, polydipsia, polyuria, polyphagia, and marked weight changes, Hematologic/Lymphatic: Negative for swollen nodes, abnormal bleeding, and unusual bruising. 07:56 Cardiovascular: Positive for chest pain. Exam: 07:56 Constitutional: This is a well developed, well nourished patient who is awake, alert, thania and in no acute distress. Head/Face: Normocephalic, atraumatic. Eyes: Pupils equal round and reactive to light, extra-ocular motions intact. Lids and lashes normal. Conjunctiva and sclera are non-icteric and not injected. Cornea within normal limits. Periorbital areas with no swelling, redness, or edema. ENT: Nares patent. No nasal discharge, no septal abnormalities noted. Tympanic membranes are normal and external auditory canals are clear. Oropharynx with no redness, swelling, or masses, exudates, or evidence of obstruction, uvula midline. Mucous membranes moist. Neck: Trachea midline, no thyromegaly or masses palpated, and no cervical lymphadenopathy. Supple, full range of motion without nuchal rigidity, or vertebral point tenderness. No Meningismus. Chest/axilla: Normal chest wall appearance and motion. Nontender with no deformity. No lesions are appreciated. Cardiovascular: Regular rate and rhythm with a normal S1 and S2. No gallops, murmurs, or rubs. Normal PMI, no JVD. No pulse deficits. Respiratory: Lungs have equal breath sounds bilaterally, clear to auscultation and percussion. No rales, rhonchi or wheezes noted. No increased work of breathing, no retractions or nasal flaring. Abdomen/GI: Soft, non-tender, with normal bowel sounds. No distension or tympany. No guarding or rebound. No evidence of tenderness throughout. Back: No spinal tenderness. No costovertebral tenderness. Full range of motion. Female : Normal external genitalia. Skin: Warm, dry with normal turgor. Normal color with no rashes, no lesions, and no evidence of cellulitis. MS/ Extremity: Pulses equal, no cyanosis. Neurovascular intact. Full, normal range of motion. Neuro: Awake and alert, GCS 15, oriented to person, place, time, and situation. Cranial nerves II-XII grossly intact. Motor strength 5/5 in all extremities. Sensory grossly intact. Cerebellar exam normal. Normal gait. Psych: Awake, alert, with orientation to person, place and time. Behavior, mood, and affect are within normal limits. 08:22 ECG was reviewed by the Attending Physician. thania 08:50 Musculoskeletal/extremity: Extremities: all appear grossly normal, with no appreciated thania pain with palpation, ROM: no acute changes, Circulation is intact in all extremities. Sensation intact. Compartment Syndrome exam of affected extremity: is normal. Joints: All joints appear normal with full range of motion. Weight bearing: able to fully bear weight, without difficulty, DVT Exam: No signs of deep vein thrombosis. no pain, no swelling, no tenderness, negative Homans' sign noted on exam, no appreciated bluish discoloration, no erythema, no increased warmth. Vital Signs: 07:42 BP 189 / 73; Pulse 50; Resp 16 S; Temp 98(O); Pulse Ox 98% on R/A; Weight 68.95 kg (R); aa5 Height 5 ft. 4 in. (R); Pain 0/10; 08:55 BP 176 / 67; Pulse 45; Pulse Ox 97% on R/A; ll1 09:41 BP 134 / 73; Pulse 46; Resp 16; Pulse Ox 99% on R/A; ll1 07:42 Body Mass Index 26.09 (68.95 kg, 162.56 cm) aa5 07:42 Pain Scale: Adult aa5 NIH Stroke Scale Scores: 08:50 NIHSS Score: 0 thania MDM: 07:29 Patient medically screened. thania 07:39 Patient medically screened. thania 08:00 Differential diagnosis: abnormal EKG, acute myocardial infarction, acute pericarditis, thania anxiety, coronary artery disease chest wall pain, congestive heart failure gastritis. HEART Score: History: Slightly Suspicious (0), ECG: Normal (0). The patient was given aspirin in the Emergency Department. ALTAGRACIA Risk Score: 1 - patient's age is greater or equal to 65 years, TOTAL SCORE = 1. Data reviewed: vital signs, nurses notes, lab test result(s), CBC, electrolytes, hepatic panel. Consideration of Admission/Observation Patient was admitted/placed on observation. Escalation of care including admission/observation considered. I considered the following discharge prescriptions or medication management in the emergency department Medications were administered in the Emergency Department. See MAR. Independent interpretation of the following test(s) in the Emergency Department EKG: See my EKG interpretation above. Test considered but Not performed: MRI: no mri chest. 08:03 Counseling: I had a detailed discussion with the patient and/or guardian regarding: the thania historical points, exam findings, and any diagnostic results supporting the discharge/admit diagnosis, the presence of at least one elevated blood pressure reading (>120/80) during this emergency department visit, lab results, the need for further work-up and treatment in the hospital. 01/24 07:48 Order name: Basic Metabolic Panel; Complete Time: 08:57 [facility] 01/24 07:48 Order name: CBC with Diff; Complete Time: 08:37 [facility] 01/24 07:48 Order name: LFT's; Complete Time: 08:57 [facility] 01/24 07:48 Order name: Magnesium; Complete Time: 08:57 [facility] 01/24 07:48 Order name: NT PRO-BNP; Complete Time: 08:57 [facility] 01/24 07:48 Order name: PT-INR; Complete Time: 08:37 [facility] 01/24 07:48 Order name: Troponin HS; Complete Time: 08:57 [facility] 01/24 07:48 Order name: Lipase; Complete Time: 08:57 [facility] 01/24 08:21 Order name: D-Dimer; Complete Time: 08:37 [facility] 01/24 11:10 Order name: Basic Metabolic Panel [facility] 01/24 11:10 Order name: Basic Metabolic Panel [facility] 01/24 11:10 Order name: CBC with Automated Diff [facility] 01/24 11:10 Order name: CBC with Automated Diff [facility] 01/24 11:10 Order name: Magnesium EDMS 01/24 11:10 Order name: Magnesium EDMS 01/24 11:10 Order name: Phosphorus EDMS 01/24 11:10 Order name: Phosphorus EDMS 01/24 11:10 Order name: Troponin High Sensitivity ED[facility] 01/24 11:10 Order name: Troponin High Sensitivity EDMS 01/24 11:10 Order name: Troponin High Sensitivity EDMS 01/24 12:07 Order name: Lipid Profile [facility] 01/24 07:48 Order name: XRAY Chest (1 view); Complete Time: 08:37 [facility] 01/24 08:12 Order name: UPPER EXTREMITY VENOUS BILAT [facility] 01/24 08:39 Order name: CT Chest For PE Angio; Complete Time: 10:40 [facility] 01/24 11:10 Order name: Echo with Doppler [facility] 01/24 14:31 Order name: US [facility] 01/24 07:48 Order name: EKG; Complete Time: 07:49 [facility] 01/24 11:10 Order name: Heart Healthy [facility] 01/24 07:48 Order name: Cardiac monitoring; Complete Time: 08:26 [facility] 01/24 07:48 Order name: EKG - Nurse/Tech; Complete Time: 08:19 [facility] 01/24 07:48 Order name: IV Saline Lock; Complete Time: 08:19 [facility] 01/24 07:48 Order name: Labs collected and sent; Complete Time: 08:19 [facility] 01/24 07:48 Order name: O2 Per Protocol; Complete Time: 07:48 [facility] 01/24 07:48 Order name: O2 Sat Monitoring; Complete Time: 07:48 [facility] EC:22 Rate is 50 beats/min. Rhythm is regular. QRS Norco is Normal. MS interval is normal. QRS thania interval is normal. QT interval is normal. No Q waves. T waves are Normal. No ST changes noted. Clinical impression: Sinus bradycardia and No evidence of ischemia. Interpreted by me. Reviewed by me. Administered Medications: 08:18 Drug: NS 0.9% IV 500 ml Route: IV; Rate: bolus; Site: right antecubital; iw 09:41 Follow up: IV Status: Completed infusion; IV Intake: 500ml ll1 08:18 Drug: Aspirin PO Chewable Tablet 162 mg Route: PO; iw 09:00 Follow up: Response: No adverse reaction iw 08:18 Drug: Famotidine IVP 20 mg Route: IVP; Site: right antecubital; iw 09:00 Follow up: Response: No adverse reaction iw 08:23 Not Given (Hemodynamic Parameters): Metoprolol PO 25 mg PO once iw 09:12 Drug: Norvasc PO 10 mg Route: PO; ll1 09:50 Follow up: Response: No adverse reaction iw 09:41 Drug: NS 0.9% IV 1000 ml Route: IV; Rate: 125 ml/hr; Site: right antecubital; ll1 14:40 Follow up: IV Status: Infusion continued upon admission iw Disposition Summary: 01/24/23 08:40 Hospitalization Ordered Hospitalization Status: Observation thania Provider: Isaak Roca cha Condition: Stable thania Problem: new thania Symptoms: have improved thania Bed/Room Type: Standard thania Location: Telemetry/MedSurg (observation)(01/24/23 13:20) ds4 Room Assignment: 411(01/24/23 13:50) ds4 Diagnosis - Chest pain, unspecified thania - Pain in left arm thania - Pain in right arm thania - Bradycardia, unspecified thania - Essential (primary) hypertension thania Forms: - Medication Reconciliation Form thania - SBAR form thania NIH Stroke Scale - NIH Stroke Score Date: 01/24/2023 Time: 08:50 Total Score = 0 10. Dysarthria (speech clarity - read or repeat words) - 0(Normal) 11. Extinction and Inattention (visual/tactile/auditory/spatial/personal) - 0(No abnormality) 1a. Level of Consciousness (LOC) - 0(Alert) 1b. Level of Consciousness (LOC) (Month \T\ Age) - 0(Both) 1c. LOC Commands (Open \T\ Closes Eyes/Jet Handler) - 0(Both) 2. Best Gaze (Lateral Gaze Paresis) - 0(Normal) 3. Visual Field Loss - 0(No visual loss) 4. Facial Palsy - 0(Normal) 5a. Left Arm: Motor (10-second hold) - 0(No drift) 5b. Right Arm: Motor (10-second hold) - 0(No drift) 6a. Left Leg: Motor (5-second hold - always test supine) - 0(No drift) 6b. Right Leg: Motor (5-second hold - always test supine) - 0(No drift) 7. Limb Ataxia (finger/nose \T\ heel/rico - test with eyes open) - 0(Absent) 8. Sensory Loss (pinprick arms/legs/face) - 0(Normal) 9. Best Language: Aphasia (description/naming/reading) - 0(No aphasia) Initials: thania Signatures: Dispatcher [employer] EDAndriy Ritchie MD MD cha Williams, Irene, RN RN iw Calderon, Audri, RN RN aa5 Swanson, Donovan ds4 Anna Rosa, RN RN ll1 Corrections: (The following items were deleted from the chart) 08:12 07:49 Extrem Venous W Compression Bienvenido+US.RAD.BRZ ordered. EDMS EDMS 08:20 07:50 D-DIMER+COAG.LAB.BRZ ordered. EDMS EDMS 09:39 08:39 Extrem Venous W Compression Bienvenido+US.RAD.BRZ ordered. EDMS EDMS 11:10 07:49 Urinalysis+U.LAB.BRZ ordered. EDMS EDMS 12:09 08:40 Telemetry/MedSurg (observation) thania iw 12:09 08:40 thania iw 13:20 12:09 [facility] ER HOLD iw ds4 13:20 12:09 ERHOLD- iw ds4 13:50 13:20 419 ds4 ds4
--- NOTE | 2023-01-24 08:41 | ER ---
Nurse's Notes [facility] Name: Stefany Skaggs Age: 77 yrs Sex: Female : 1945 Arrival Date: 01/24/2023 Time: 07:26 Bed 8 Private MD: Ab Rodriguez E Diagnosis: Chest pain, unspecified;Pain in left arm;Pain in right arm;Bradycardia, unspecified;Essential (primary) hypertension Presentation: 01/24 07:42 Chief complaint: Patient states: "the veins in my left arm swell up at night and it's aa5 painful but then in the morning it goes away". Pt reports intermittent SOB and chest pain. 07:42 Coronavirus screen: At this time, the client does not indicate any symptoms associated aa5 with coronavirus-19. Ebola Screen: Patient denies travel to an Ebola-affected area in the 21 days before illness onset. Initial Sepsis Screen: Does the patient meet any 2 criteria? No. Patient's initial sepsis screen is negative. Does the patient have a suspected source of infection? No. Patient's initial sepsis screen is negative. Risk Assessment: Do you want to hurt yourself or someone else? Patient reports no desire to harm self or others. Onset of symptoms was December 2022. 07:42 Acuity: LAUREEN 3 aa5 07:42 Method Of Arrival: Ambulatory aa5 Historical: - Allergies: 07:42 Cipro; aa5 07:42 Pneumovax 23 (PPSV); aa5 - Home Meds: 11:42 None [Active]; iw - PMHx: 07:42 Seizures; heart arrythmia; aa5 - PSHx: 07:42 heart ablation; aa5 - Immunization history:: Adult Immunizations unknown. - Social history:: Smoking status: Patient denies any tobacco usage or history of. - Family history:: not pertinent. Screenin:56 [facility] ED Fall Risk Assessment (Adult) Score/Fall Risk Level 0 - 2 = Low Risk ll1 Oriented to surroundings, Maintained a safe environment, Educated pt \\T\\ family on fall prevention, incl call for assistance when getting out of bed, Hourly rounding (assess needs \\T\\ fall precautionary measures) done. Abuse screen: Denies threats or abuse. Nutritional screening: No deficits noted. Tuberculosis screening: No symptoms or risk factors identified. Assessment: 08:10 Reassessment:. General: Appears in no apparent distress. Behavior is calm, cooperative, ll1 appropriate for age. Pain: Denies pain. Cardiovascular: Reports chest pain, fatigue. Musculoskeletal: Circulation, motion, and sensation intact. Capillary refill < 3 seconds. 08:30 Reassessment: No changes from previously documented assessment. Patient and/or family ll1 updated on plan of care and expected duration. Pain level reassessed. Patient is alert, oriented x 3, equal unlabored respirations, skin warm/dry/pink. 09:08 Reassessment: No changes from previously documented assessment. Patient and/or family ll1 updated on plan of care and expected duration. Pain level reassessed. Patient is alert, oriented x 3, equal unlabored respirations, skin warm/dry/pink. To CT via wheelchair. 09:42 Reassessment: No changes from previously documented assessment. Patient and/or family ll1 updated on plan of care and expected duration. Pain level reassessed. Patient is alert, oriented x 3, equal unlabored respirations, skin warm/dry/pink. Vital Signs: 07:42 BP 189 / 73; Pulse 50; Resp 16 S; Temp 98(O); Pulse Ox 98% on R/A; Weight 68.95 kg (R); aa5 Height 5 ft. 4 in. (R); Pain 0/10; 08:55 BP 176 / 67; Pulse 45; Pulse Ox 97% on R/A; ll1 09:41 BP 134 / 73; Pulse 46; Resp 16; Pulse Ox 99% on R/A; ll1 07:42 Body Mass Index 26.09 (68.95 kg, 162.56 cm) aa5 07:42 Pain Scale: Adult aa5 NIH Stroke Scale Scores: 08:50 NIHSS Score: 0 [facility] ED Course: 07:28 Patient arrived in ED. am2 07:29 Ab Rodriguez MD is Private Physician. am2 07:29 Andriy Carver MD is Attending Physician. thania 07:42 Arm band placed on Patient placed in an exam room, on a stretcher. aa5 07:50 Triage completed. aa5 07:56 Karli Pickens, RN is Primary Nurse. iw 08:23 XRAY Chest (1 view) In Process Unspecified. EDMS 08:35 Inserted saline lock: 22 gauge in right antecubital area, using aseptic technique. ll1 Blood collected. 08:39 Isaak Roca MD is Hospitalizing Provider. thania 08:57 Patient has correct armband on for positive identification. Bed in low position. Call ll1 light in reach. Side rails up X 1. Client placed on continuous cardiac and pulse oximetry monitoring. NIBP monitoring applied. desk monitor on. 09:20 CT Chest For PE Angio In Process Unspecified. EDMS 09:40 UPPER EXTREMITY VENOUS BILAT In Process Unspecified. EDMS 14:49 No provider procedures requiring assistance completed. Patient admitted, IV remains in iw place. Administered Medications: 08:18 Drug: NS 0.9% IV 500 ml Route: IV; Rate: bolus; Site: right antecubital; iw 09:41 Follow up: IV Status: Completed infusion; IV Intake: 500ml ll1 08:18 Drug: Aspirin PO Chewable Tablet 162 mg Route: PO; iw 09:00 Follow up: Response: No adverse reaction iw 08:18 Drug: Famotidine IVP 20 mg Route: IVP; Site: right antecubital; iw 09:00 Follow up: Response: No adverse reaction iw 08:23 Not Given (Hemodynamic Parameters): Metoprolol PO 25 mg PO once iw 09:12 Drug: Norvasc PO 10 mg Route: PO; ll1 09:50 Follow up: Response: No adverse reaction iw 09:41 Drug: NS 0.9% IV 1000 ml Route: IV; Rate: 125 ml/hr; Site: right antecubital; ll1 14:40 Follow up: IV Status: Infusion continued upon admission iw Medication: 01/23 08:10 VIS not applicable for this client. iw Intake: 01/24 09:41 IV: 500ml; Total: 500ml. ll1 Outcome: 08:40 Decision to Hospitalize by Provider. thania 14:49 Admitted to Med/surg family with patient, via wheelchair. iw 14:49 Condition: good 14:49 Instructed on the need for admit. iw 14:50 Patient left the ED. iw NIH Stroke Scale - NIH Stroke Score Date: 01/24/2023 Time: 08:50 Total Score = 0 10. Dysarthria (speech clarity - read or repeat words) - 0(Normal) 11. Extinction and Inattention (visual/tactile/auditory/spatial/personal) - 0(No abnormality) 1a. Level of Consciousness (LOC) - 0(Alert) 1b. Level of Consciousness (LOC) (Month \\T\\ Age) - 0(Both) 1c. LOC Commands (Open \\T\\ Closes Eyes/Collection Systems Foreman) - 0(Both) 2. Best Gaze (Lateral Gaze Paresis) - 0(Normal) 3. Visual Field Loss - 0(No visual loss) 4. Facial Palsy - 0(Normal) 5a. Left Arm: Motor (10-second hold) - 0(No drift) 5b. Right Arm: Motor (10-second hold) - 0(No drift) 6a. Left Leg: Motor (5-second hold - always test supine) - 0(No drift) 6b. Right Leg: Motor (5-second hold - always test supine) - 0(No drift) 7. Limb Ataxia (finger/nose \\T\\ heel/rico - test with eyes open) - 0(Absent) 8. Sensory Loss (pinprick arms/legs/face) - 0(Normal) 9. Best Language: Aphasia (description/naming/reading) - 0(No aphasia) Initials: thania Signatures: Dispatcher [employer] EDMI Andriy Carver MD MD cha Williams, Irene, RN RN Dionne Ortega RN RN aa5 Latrice Rivas Lynsay, RN RN ll1 Corrections: (The following items were deleted from the chart) 07:48 07:44 Arm band placed on Patient placed in an exam room, on a stretcher, ll1 aa5 07:51 07:42 BP 189 / 73; Pulse 50bpm; Resp 16bpm; Spontaneous; Pulse Ox 98% RA; Temp aa5 98F Oral; 68.95 kg Reported; Height 5 ft. 4 in. Reported; BMI: 26.0; aa5
[2023-01-24 08:53] LABS: Albumin 3.6 g/dL (3.4-5.0); Bilirubin Direct 0.2 mg/dL (0-0.2); Bilirubin Indirect, Calculated 1.1 mg/dL (0.2-0.8); Bilirubin Total 1.3 mg/dL (0.2-1.0); Magnesium 2.1 mg/dL (1.6-2.4); Potassium 4.1 mEq/L (3.5-5.1); Protein, Total 7.4 g/dL (6.4-8.2); Troponin High Sensitivity 6.6 pg/mL (<58.9)
[2023-01-24] MEDS ORDERED: AMLODIPINE 10 MG TAB ONE (09:08)
--- NOTE | 2023-01-24 09:36 | RAD REPORT ---
EXAM DESCRIPTION: CT - Chest For Pe Angio - 01/24/2023 9:19 am CLINICAL HISTORY: Chest pain. CHEST PAIN COMPARISON: No comparisons TECHNIQUE: CT angiogram of the pulmonary arteries was performed with MIP. All CT scans are performed using dose optimization technique as appropriate and may include automated exposure control or mA/KV adjustment according to patient size. FINDINGS: No evidence of pulmonary thromboembolism. No acute aortic finding demonstrated. The lungs are clear. No significant pericardial or pleural fluid. No concerning bony finding. IMPRESSION: No evidence of pulmonary thromboembolism. No acute lung findings.
--- NOTE | 2023-01-24 11:02 | P.HP ---
Certification for Inpatient Patient admitted to: Observation With expected LOS: <2 Midnights Patient will require the following post-hospital care: None Practitioner: I am a practitioner with admitting privileges, knowledge of patient current condition, hospital course, and medical plan of care. Services: Services provided to patient in accordance with Admission requirements found in Title 42 Section 412.3 of the Code of Federal Regulations Patient History Date of Service: 01/24/23 Reason for admission: Chest Pain History of Present Illness: Ms. Stefany Skaggs is a pleasant 77 year old female who has a past medical history of arrhythmia s/p cardiac ablation (2008), partial complex seizures, and hypertension who presents to the [facility] Emergency Department for chest pain. She reports that, over the last 1-2 weeks, she has been experiencing intermittent episodes of chest discomfort. She characterizes the pain as "thumpi ng" and states that it radiates down her left arm. She states that the symptoms occur without any obvious inciting or alleviating factors. She grades her pain a 4/10 in severity. On review of systems, she reports shortness of breath and palpitations, but denies any fevers, chills, headaches, dizziness, syncope, weakness, wheezing, cough, abdominal pain, nausea/vomiting, diarrhea, constipation, hematochezia, melena, dysuria, hematuria, myalgia, or any other symptoms. She presented to the Emergency Department for further evaluation. Upon presentation, her vital signs were notable for a blood pressure of 189/73. Her laboratory studies were notable for a d-dimer of 859. Her EKG was without STEMI criteria. Her chest x-ray revealed, "no acute intrathoracic process suspected." Her CT chest angiogram revealed, "no evidence of pulmonary thromboembolism. No acute lung findings." Her bilateral upper extremity ultrasound revealed, "negative study." In the Emergency Department, she was given famotidine, aspirin, and 500 mL Normal Saline. She was admitted to the General Internal Medicine service for further evaluation. Allergies ciprofloxacin Adverse Reaction (Verified 01/24/23 11:11) pneumococcal vaccine Adverse Reaction (Verified 01/24/23 11:11) Home medications list reviewed: Yes - Past Medical/Surgical History Diabetic: No -: Partial Complex Seizures -: Hypertension -: Arrhythmia -: Cardiac Ablation (2008) - Family History Family History: Reviewed- Non-Contributory - Social History Smoking Status: Never smoker Alcohol use: No CD- Drugs: No Caffeine use: No Review of Systems General: Unremarkable Eyes: Unremarkable ENT: Unremarkable Respiratory: Shortness of Breath Cardiovascular: Chest Pain Gastrointestinal: Unremarkable Genitourinary: Unremarkable Musculoskeletal: Arm Pain (left) Integumentary: Unremarkable Neurological: Unremarkable Lymphatics: Unremarkable Physical Examination - Vital Signs Temperature: 98.0 F Blood Pressure: 189/73 Pulse: 50 Respirations: 16 Pulse Ox (%): 98 - Physical Exam General: Alert, In no apparent distress, Oriented x3 HEENT: Atraumatic, Mucous membr. moist/pink, Sclerae nonicteric Neck: JVD not distended Respiratory: Clear to auscultation bilaterally, Normal air movement Cardiovascular: No edema, Regular rate/rhythm, Normal S1 S2, No gallops, No rubs, No murmurs Gastrointestinal: Normal bowel sounds, Soft and benign, Non-distended, No tenderness, No rebound, No guarding Musculoskeletal: No clubbing Integumentary: No rashes Neurological: Normal speech, Normal affect - Studies Laboratory Data (last 24 hrs) 01/24/23 08:10: PT 10.6, INR 0.96 01/24/23 08:10: WBC 6.30, Hgb 13.3, Hct 40.0, Plt Count 373 01/24/23 08:10: Sodium 142, Potassium 4.1, BUN 21 H, Creatinine 0.98, Glucose 102, Magnesium 2.1, Total Bilirubin 1.3 H, AST 17, ALT 31, Alkaline Phosphatase 91, Lipase 40 Assessment and Plan - Plan # Hypertensive Urgency with Chest Pain # Arrhythmia s/p Cardiac Ablation (2008) - Evaluation thus far: - EKG - without STEMI criteria, trend - Serial troponin: First was 6.6 - Ordered transthoracic echocardiogram - Chest x-ray = "no acute intrathoracic process suspected." - D-dimer = 859 - CT chest angiogram = "no evidence of pulmonary thromboembolism. No acute lung findings." - Bilateral upper extremity ultrasound = "negative study." - Bilateral lower extremity = pending - Management plan: - Consult Cardiology - recommendations appreciated - S/P aspirin 162 mg PO x 1 in ED - Start daily baby aspirin - Ordered risk profile: Hgb A1c, lipid panel - Started lisinopril - If cardiac ischemia confirmed, consider starting beta-shelly, statin as tolerated # Partial Complex Seizures - Reports that she is no longer taking any anti-epileptics - She reports no seizure episodes for several years Isaak Roca M.D. - Advance Directives Does patient have a Living Will: No Does patient have a Durable POA for Healthcare: No
--- NOTE | 2023-01-24 11:07 | RAD REPORT ---
EXAM DESCRIPTION: US - UPPER EXTREMITY VENOUS BILAT - 01/24/2023 9:38 am CLINICAL HISTORY: Left arm pain and swelling. COMPARISON: None. TECHNIQUE: Real-time sonographic evaluation of the bilateral upper extremity deep venous system was performed. FINDINGS: Normal compressibility, flow augmentation, phasic flow and spontaneous flow is identified in both bilateral upper extremity deep venous system. No intraluminal filling defects seen. IMPRESSION: Negative study.
[2023-01-24] MEDS ORDERED: lisinopriL 5 MG TAB PO SCH (12:00)
[2023-01-24 12:07] VITALS: BMI 26.1
--- NOTE | 2023-01-24 14:30 | RAD REPORT ---
EXAM DESCRIPTION: US - Extrem Venous W Compress Bienvenido - 01/24/2023 2:22 pm CLINICAL HISTORY: eval for DVT Bilateral leg edema and swelling. COMPARISON: UPPER EXTREMITY VENOUS BILAT dated 01/24/2023 TECHNIQUE: Real-time sonographic interrogation of the left and right lower extremity deep venous sys tems was performed. FINDINGS: Normal compressibility, flow augmentation, phasic flow and spontaneous flow is identified in both the left and right lower extremity deep venous systems. IMPRESSION: No sonographic evidence of left or right lower extremity deep venous thrombosis.
[2023-01-24 14:59] VITALS: O2SAT 99
--- NOTE | 2023-01-24 20:19 | CON ---
Date of Consultation: 01/24/2023 Reason For Consultation: Chest pain. History Of Present Illness: This is a 77-year-old female with history of hypertension, atrial fibril lation, status post ablation. She presented with some pain to her left hand and arm, maybe mild ches t discomfort that lasts for seconds. Denies having any exertional shortness of breath or chest pain. No nausea, vomiting, diarrhea. I saw her outside, she is pain free totally. Past Medical History: As outlined above in HPI. Medications: Refer to reconciliation sheet for detailed list. Allergies: CIPRO, OFLOXACIN, AND PNEUMOCOCCAL VACCINE. Family History: No premature coronary artery disease or cancer. Social History: She does not smoke or drink. Does not use any drugs. Review of Systems: All systems reviewed and they were negative except what mentioned in HPI. Physical Examination: Vital Signs: Reviewed. Head and Neck: Pupils are equal, reactive to light. Intact eye movements. No JVD. No cervical lym phadenopathy. Neck is supple. Thyroid is not enlarged. Lungs: Clear to auscultation bilaterally. No rhonchi, wheezing, or crackles. No accessory muscle u se. Heart: Regular rate and rhythm. No extra sounds. Abdomen: Soft, nontender. Bowel sounds positive. Extremities: No edema, clubbing, or cyanosis. Intact pulses. Skin: No rash. Neurologic: Alert, awake, oriented x3. No acute focal deficits appreciated. Investigations: Her troponins are negative. BUN 21, creatinine 0.98, and hemoglobin is 13.3. EKG w ithout acute specific abnormalities. CTA of the chest was negative for PE and venous Doppler was neg ative for DVT. Assessment And Recommendations: 1.Chest pain. It is atypical. Cardiac enzymes are negative. From a Cardiology standpoint, she can be released and follow up as an outpatient and we will plan for stress test and an echo as an outpat ient. 2.Elevated D-dimer, nonspecific as CT of the lungs negative and no deep vein thrombosis by Doppler. 3.Hypertension. Blood pressure is controlled. Continue current therapy. The patient can be releas ed. Follow up as an outpatient. SR/MODL Voice ID: [id number] Report ID: [id number]
--- NOTE | 2023-01-24 20:25 | P.DS ---
Admission Date: 01/24/23 Discharge Date: 01/24/23 Disposition: ROUTINE DISCHARGE Discharge Condition: GOOD Reason for Admission: Chest Pain Procedures: CTA chest 01/24/2023 FINDINGS: No evidence of pulmonary thromboembolism. No acute aortic finding demonstrated. The lungs are clear. No significant pericardial or pleural fluid. No concerning bony finding. IMPRESSION: No evidence of pulmonary thromboembolism. No acute lung findings. Bilateral lower extremity venous Doppler 01/24/2023 FINDINGS: Normal compressibility, flow augmentation, phasic flow and spontaneous flow is identified in both the left and right lower extremity deep venous systems. IMPRESSION: No sonographic evidence of left or right lower extremity deep venous thrombosis. Bilateral upper extremity venous Doppler 01/24/2023 FINDINGS: Normal compressibility, flow augmentation, phasic flow and spontaneous flow is identified in both bilateral upper extremity deep venous system. No intraluminal filling defects seen. IMPRESSION: Negative study. Chest x-ray 01/24/2023 FINDINGS: Portable technique limits examination quality. The lungs are grossly clear. The heart is normal in size. No displaced fractures. IMPRESSION: No acute intrathoracic process suspected Brief History of Present Illness: Ms. Stefany Skaggs is a pleasant 77 year old female who has a past medical history of arrhythmia s/p cardiac ablation (2008), partial complex seizures, and hypertension who presents to the [facility] Emergency Department for chest pain. She reports that, over the last 1-2 weeks, she has been experiencing intermit tent episodes of chest discomfort. She characterizes the pain as "thumping" and states that it radiates down her left arm. She states that the symptoms occur without any obvious inciting or alleviating factors. She grades her pain a 4/10 in severity. On review of systems, she reports shortness of breath and palpitations, but denies any fevers, chills, headaches, dizziness, syncope, weakness, wheezing, cough, abdominal pain, nausea/vomiting, diarrhea, constipation, hematochezia, melena, dysuria, hematuria, myalgia, or any other symptoms. She presented to the Emergency Department for further evaluation. Upon presentation, her vital signs were notable for a blood pressure of 189/73. Her laboratory studies were notable for a d-dimer of 859. Her EKG was without STEMI criteria. Her chest x-ray revealed, "no acute intrathoracic process suspected." Her CT chest angiogram revealed, "no evidence of pulmonary thromboembolism. No acute lung findings." Her bilateral upper extremity ultrasound revealed, "negative study." In the Emergency Department, she was given famotidine, aspirin, and 500 mL Normal Saline. She was admitted to the General Internal Medicine service for further evaluation. Hospital Course: Patient was admitted under observation for ACS rule out, her troponins have been negative. She was seen and evaluated by cardiology who recommends further katelyn luation on outpatient basis and is cleared for discharge from a cardiology standpoint. CT of the chest was negative for pulmonary embolism or other acute findings, venous Dopplers of bilateral upper and lower extremities negative for DVT given elevated D-dimer. Her blood pressure was elevated she has been started on lisinopril 5 mg daily. Will provide with prescription for lisinopril, instructed patient to follow-up with cardiology on outpatient basis for further testing. Vital Signs/Physical Exam: Temp Pulse Resp BP Pulse Ox 97.6 F 48 L 16 131/60 95 01/24/23 16:59 01/24/23 16:59 01/24/23 16:59 01/24/23 16:59 01/24/23 16:59 Laboratory Data at Discharge: WBC 6.30 thou/uL (4.3-10.9) 01/24/23 08:10 Hgb 13.3 g/dL (12.0-15.0) 01/24/23 08:10 Hct 40.0 % (36.0-45.0) 01/24/23 08:10 Plt Count 373 thou/uL (152-406) 01/24/23 08:10 PT 10.6 SECONDS (9.5-12.5) 01/24/23 08:10 INR 0.96 01/24/23 08:10 Sodium 142 mEq/L (136-145) 01/24/23 08:10 Potassium 4.1 mEq/L (3.5-5.1) 01/24/23 08:10 BUN 21 mg/dL (7-18) H 01/24/23 08:10 Creatinine 0.98 mg/dL (0.55-1.02) 01/24/23 08:10 Glucose 102 mg/dL (74-106) 01/24/23 08:10 Magnesium 2.1 mg/dL (1.6-2.4) 01/24/23 08:10 Total Bilirubin 1.3 mg/dL (0.2-1.0) H 01/24/23 08:10 AST 17 U/L (15-37) 01/24/23 08:10 ALT 31 U/L (13-56) 01/24/23 08:10 Alkaline Phosphatase 91 U/L (45-117) 01/24/23 08:10 Triglycerides 81 mg/dL (<150) 01/24/23 08:10 Cholesterol 203 mg/dL (<200) H 01/24/23 08:10 HDL Cholesterol 80 mg/dL (40-60) H 01/24/23 08:10 Cholesterol/HDL Ratio 2.54 01/24/23 08:10 Lipase 40 U/L (13-75) 01/24/23 08:10 Home Medications: lisinopriL [Prinivil*] 5 mg PO DAILY #30 tab 01/24/23 New Medications: lisinopriL [Prinivil*] 5 mg PO DAILY #30 tab Diet: AHA Activity: Ad wilton Followup: Alla Patel NP [Primary Care Provider] - 1-2 Weeks Jared Cabello MD [ACTIVE - CAN ADMIT] - 1-2 Weeks Time spent managing pt's care (in minutes): 25
[2023-01-24 22:23] VITALS: BP 115/57; TEMP 97.9
[2023-01-25] MEDS ORDERED: ENOXAPARIN 40 MG/0.4 ML SQ SCH (09:00)
[2023-01-25] MEDS ORDERED: ASPIRIN 81 MG CHEWABLE TABLET PO SCH (09:00)
--- NOTE | 2023-01-25 17:13 | EKG ---
Test Date: 2023-01-24 Test Time: 08:14:03 Drywall Stripper: MARTHA MEASUREMENT RESULTS: Intervals: Rate: 50 OH: 196 QRSD: 94 QT: 462 QTc: 421 [place]: P: 65 OH: 196 QRS: -62 T: 46 INTERPRETIVE STATEMENTS: Sinus bradycardia with sinus arrhythmia Left anterior fascicular block Abnormal ECG Compared to ECG 06/20/2017 07:54:01 Left anterior fascicular block now present Left-axis deviation no longer present Electronically Signed On 01-25-23 17:11:01 CDT by Jared Cabello
== END 2023-01-24 21:30 | disposition home or self-care (01) ==
LOC: ER 07:26 → ERHOLD 11:05 → 4TH 13:48
PROVIDERS: ADMIT Internal Medicine; ATTEND Internal Medicine
DX: R07.9 Chest pain, unspecified (principal); I49.9 Cardiac arrhythmia, unspecified; I10 Essential (primary) hypertension; G40.209 Localization-related (focal) (partial) symptomatic epilepsy and epileptic syndromes with complex partial seizures, not intractable, without status epilepticus; I16.0 Hypertensive urgency; R00.1 Bradycardia, unspecified; R79.1 Abnormal coagulation profile; Z88.1 Allergy status to other antibiotic agents; Z88.7 Allergy status to serum and vaccine
CPT/HCPCS: 85025; 80048; 36415; 83735; 85610; 80061; 85379; 80076; 83036; 84484 ×3; 83690; 83880; 71275; 71045; 93970 ×2; Q9967; J7030; 93005; G0378

== ENCOUNTER 2024-11-11 02:44 | Emergency (ER) | payer OTHER ==
--- OUTSIDE RECORDS SUMMARY | 2024-11-11 02:47 | XMS REPORT | Continuity of Care Document ---
Author Name Unknown Address [address] [facility]. [address] [place] [address] [facility] [place] Address [address] [facility] [place] [address] Care Team Providers Care Hand I Blocker Name Role Phone [email or web address] Attending Clinician UnavailALBA Garza Attending Clinician Un available Alba Jefferson Attending Clinician [phone] Lavinia Berry MD Attending Clinician [phone] LAVINIA BERRY Attending Clinician Unavailable [email or web address] Admitting Clinician UnavailALBA Garza Admitting Clinician Un available Payers Payer Name Policy Type Policy Number Effective Date Expirati on Date Source [employer] (MEDICARE REPLACEMENT PPO) [id number] 2021 00:00:00 Problems Condition Name Condition Details Condition Category Status Onset Date Resolution Date Last Treatment Date Treating Clinician Comments Source Abdominal pain Abdominal Pain Problem Active 2021-08 00:00: 00 [facility] N82.3 N82.3 Active 04/03/2022 [facility] Diagnosis Active 04-03 00:00: 00 2022-04-21 07:13:00 David Barahona Headache (finding) Headache (finding) Active Problem 06/07/[address] 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 Problem Active 2023-06-07 13:18:46 Dustinmaria e gordon Barahona Seizure (finding) Seizure (finding) Active Problem 06/07/[address] 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 Problem Active 2023-06-07 13:18:46 Memmaria e leyva Jun Hyperlipid emia (disorder) Hyperlipid emia (disorder) Active Problem 06/07/[address] 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 [facility] Jun Diagnosis Active 2022-04-21 07:13:00 David Barahona No known active problems No known active problems Disease [facility] Allergies, Adverse Reactions, Alerts Allergy Name Allergy Type Status Severity Reaction(s) Onset Date Inactive Date Treating Clinician Comments Source Ibuprofe n Propensi ty to adverse reaction s Active Rash 01-12 00:00: 00 [facility] IBUPROFE N DRUG INGREDI Active Rash 01-12 00:00: 00 [facility] ciproflo xacin ciproflo xacin Active David Barahona Social History Social Habit Start Date Stop Date Quantity Comments Source Sex [facility] Tobacco smoking status NHIS 2023-10-28 00:00:00 2023-10-28 00:00:00 Non-Smoker Social History 2022-04-10 20:01:40 2022-04-10 20:01:40 Mallory Barahona Alcohol intake 2017-02-08 00:00:00 2017-02-08 00:00:00 [facility] Smoking Status Start Date Stop Date Source Tobacco smoking status Marcelo Barahona Medications Ordered Medication Name Filled Medication Name Start Date Stop Date Current Medication? Ordering Clinician Indication Dosage Frequency Signature (SIG) Comments Components Source No known medications 10-27 21:06: 04 Yes No Known Medication s; Dr Luis Amos; Endocrinol ogy & Osteoporos is [facility]; 10/28/2023 aspirin 81 mg tablet, enteric coated 2022-08 1 15:27: 00 Yes 81 mg = 1 tab, PO, Daily, # 90 tab, 3 Refill(s) Memoria gordon Barahona Lipitor 10 mg oral tablet -16 15:23: 00 Yes 10 mg = 1 tab, PO, Daily, # 30 tab, 2 Refill(s), Pharmacy: [facility] #[id number], 162.56, cm, 03/17/23 9:21:00 CDT, Height, 71.477, kg, 03/17/23 9:21:00 CDT, Weight Memmaria e Barahona Plavix 75 mg oral tablet 01-29 18:17: 00 Yes 75 mg = 1 tab, PO, Daily, # 90 tab, 1 Refill(s), Pharmacy: [facility] #[id number], 162.56, cm, 01/26/23 15:45:00 CDT, Height, 70.455, kg, 01/26/23 15:45:00 CDT, Weight Memoria gordon Barahona Plavix 75 mg oral tablet 01-26 21:06: 00 Yes 75 mg = 1 tab, PO, Daily, # 30 tab, 3 Refill(s), Pharmacy: [facility] #[id number], 162.56, cm, 01/26/23 15:45:00 CDT, Height, 70.455, kg, 01/26/23 15:45:00 CDT, Weight Memmaria e Barahona lisinopril 5 mg oral tablet 01-26 20:45: 00 Yes 5 mg = 1 tab, PO, Daily, # 30 tab, 0 Refill(s) Memoria gordon Barahona neostigmine (ANES) 04-20 18:58: 00 No Route: IV, Drug form: INJ, ONCE, Stop date: 04/20/22 13:58:00 CDT Memoria gordon Jun norepinephr ine (ANES) 04-20 18:54: 00 No Route: IV, Drug form: INJ, ONCE, Stop date: 04/20/22 13:54:00 CDT Memmaria e Barahona esmolol ([facility]) 04-20 18:08: 00 No Route: IV, Drug form: INJ, ONCE, Stop date: 04/20/22 13:08:00 CDT Memmaria e Barahona glycopyrrol ate ([facility]) 04-20 18:03: 00 No Route: IV, Drug form: INJ, ONCE, Stop date: 04/20/22 13:03:00 CDT Memmaria e Barahona ePHEDrine ([facility]) 04-20 18:03: 00 No Route: IV, Drug form: INJ, ONCE, Stop date: 04/20/22 13:03:00 CDT Memmaria e Barahona lidocaine ([facility]) 04-20 17:43: 00 No Route: IV, Drug form: INJ, ONCE, Stop date: 04/20/22 12:43:00 CDT Memmaria e Barahona rocuronium ([facility]) 04-20 17:43: 00 No Route: IV, Drug form: INJ, ONCE, Stop date: 04/20/22 12:43:00 CDT Memoria gordon Barahona dexamethaso ne ([facility]) 04-20 17:43: 00 No Route: IV, Drug form: INJ, ONCE, Stop date: 04/20/22 12:43:00 CDT Memmaria e Barahona cefOXitin ([facility]) 04-20 17:33: 00 No Route: IV, Drug form: INJ, ONCE, Stop date: 04/20/22 12:33:00 CDT Memmaria e Barahona ondansetron ([facility]) 04-20 17:33: 00 No Route: IV, Drug form: INJ, ONCE, Stop date: 04/20/22 12:33:00 CDT Memoria gordon Barahona fentaNYL ([facility]) 04-20 17:28: 00 No Route: IV, Drug form: INJ, ONCE, Stop date: 04/20/22 12:28:00 CDT Memoria gordon Barahona propofol ([facility]) 04-20 17:28: 00 No Route: IV, Drug form: INJ, ONCE, Stop date: 04/20/22 12:28:00 CDT David Barahona Lactated Ringers Injection IV (ANES) 1000 mL 04-20 16:50: 00 No Route: IV, Total Volume: 1,000, Start date: 04/20/22 11:50:00 CDT, Stop date: 04/20/22 12:50:00 CDT David Barahona Lactated Ringers Injection IV 1,000 mL 04-20 16:38: 00 No 1,000 mL, Rate: 75 ml/hr, Infuse over: 13.3 hr, Route: IV, Dosing Weight 71.045 kg, Total Volume: 1,000, Start date: 04/20/22 11:38:00 CDT, Duration: 30 day, Stop date: 05/20/22 11:37:00 CDT, BSA: 1.81 m2, 0 David Barahona Vitamin C 04-10 20:16: 00 Yes Daily, 0 Refill(s) David Barahona Vitamin D3 04-10 20:16: 00 Yes 0 Refill(s) David Barahona CoQ10 04-10 20:16: 00 Yes PO, Daily, 0 Refill(s) David Barahona selenium 04-10 20:16: 00 Yes PO, Daily, 0 Refill(s) David Barahona Zinc 04-10 20:15: 00 Yes 140 mg, PO, Daily, 0 Refill(s) David Barahona amoxicillin 500 mg capsule 10-27 00:00: 00 Yes [id number] 500mg Take 1 capsule by mouth 3 (three) times daily. [facility] phenazopyri dine 200 mg tablet 10-27 00:00: 00 Yes [id number] 200mg Take 1 tablet by mouth 3 (three) times daily. [facility] foLIC acid 1 mg tablet 02-03 18:05: 41 Yes 1mg Take 1 mg by mouth daily. [facility] multivitami n, tx-minerals (COMPLETE MULTIVITAMI N) tablet 02-03 18:05: 41 Yes 1{tbl} Take 1 tablet by mouth daily. [facility] simvastatin 20 mg tablet 02-03 18:05: 41 Yes 20mg Take 20 mg by mouth daily. [facility] cephalexin 500 mg capsule Take 1 capsule every 6 hours by oral route for 5 days. cephalexin 500 mg capsule Take 1 capsule every 6 hours by oral route for 5 days. No 1capsul e(s) Q6H cephalexin 500 mg capsule Take 1 capsule every 6 hours by oral route for 5 days. [facility] Co Q-10 Co Q-10 No Co Q-10 [facility] hydrocodone 5 mg-acetamin ophen 325 mg tablet TAKE 1 TABLET BY MOUTH EVERY 6 HOURS FOR 5 DAYS hydrocodone 5 mg-acetamin ophen 325 mg tablet TAKE 1 TABLET BY MOUTH EVERY 6 HOURS FOR 5 DAYS No hydrocodon e 5 mg-acetami nophen 325 mg tablet TAKE 1 TABLET BY MOUTH EVERY 6 HOURS FOR 5 DAYS [facility] ketorolac 10 mg tablet Take 1 tablet every 6 hours by oral route for 5 days. ketorolac 10 mg tablet Take 1 tablet every 6 hours by oral route for 5 days. No 1 Q6H ketorolac 10 mg tablet Take 1 tablet every 6 hours by oral route for 5 days. [facility] metronidazo le 500 mg tablet TAKE 1 TABLET BY MOUTH AT 2PM, 3PM, AND 10PM THE DAY BEFORE SURGERY metronidazo le 500 mg tablet TAKE 1 TABLET BY MOUTH AT 2PM, 3PM, AND 10PM THE DAY BEFORE SURGERY No metronidaz ole 500 mg tablet TAKE 1 TABLET BY MOUTH AT 2PM, 3PM, AND 10PM THE DAY BEFORE SURGERY [facility] neomycin 500 mg tablet TAKE 2 TABLETS BY MOUTH AT 2PM,3PM AND 10PM, THE DAY BEFORE SURGERY neomycin 500 mg tablet TAKE 2 TABLETS BY MOUTH AT 2PM,3PM AND 10PM, THE DAY BEFORE SURGERY No neomycin 500 mg tablet TAKE 2 TABLETS BY MOUTH AT 2PM,3PM AND 10PM, THE DAY BEFORE SURGERY [facility] Suprep Bowel Prep Kit 17.5 gram-3.13 gram-1.6 gram oral solution TAKE 1 BOTTLE BY MOUTH 12PM (NOON), THE DAY BEFORE SURGERY Suprep Bowel Prep Kit 17.5 gram-3.13 gram-1.6 gram oral solution TAKE 1 BOTTLE BY MOUTH 12PM (NOON), THE DAY BEFORE SURGERY No Suprep Bowel Prep Kit 17.5 gram-3.13 gram-1.6 gram oral solution TAKE 1 BOTTLE BY MOUTH 12PM (NOON), THE DAY BEFORE SURGERY [facility] Suprep Bowel Prep Kit 17.5 gram-3.13 gram-1.6 gram oral solution Take 16 ounces by oral route. Suprep Bowel Prep Kit 17.5 gram-3.13 gram-1.6 gram oral solution Take 16 ounces by oral route. No 16ounce (s) Suprep Bowel Prep Kit 17.5 gram-3.13 gram-1.6 gram oral solution Take 16 ounces by oral route. [facility] amoxicillin 500 mg-potassiu m clavulanate 125 mg tablet amoxicillin 500 mg-potassiu m clavulanate 125 mg tablet No amoxicilli n 500 mg-potassi um clavulanat e 125 mg tablet [facility] cephalexin 500 mg capsule TAKE 1 CAPSULE BY MOUTH EVERY 6 HOURS FOR 5 DAYS cephalexin 500 mg capsule TAKE 1 CAPSULE BY MOUTH EVERY 6 HOURS FOR 5 DAYS No cephalexin 500 mg capsule TAKE 1 CAPSULE BY MOUTH EVERY 6 HOURS FOR 5 DAYS [facility] Co Q-10 Co Q-10 No Co Q-10 [facility] hydrocodone 5 mg-acetamin ophen 325 mg tablet TAKE 1 TABLET BY MOUTH EVERY 6 HOURS FOR 5 DAYS hydrocodone 5 mg-acetamin ophen 325 mg tablet TAKE 1 TABLET BY MOUTH EVERY 6 HOURS FOR 5 DAYS No hydrocodon e 5 mg-acetami nophen 325 mg tablet TAKE 1 TABLET BY MOUTH EVERY 6 HOURS FOR 5 DAYS [facility] ketorolac 10 mg tablet Take 1 tablet every 6 hours by oral route for 5 days. ketorolac 10 mg tablet Take 1 tablet every 6 hours by oral route for 5 days. No 1 Q6H ketorolac 10 mg tablet Take 1 tablet every 6 hours by oral route for 5 days. [facility] metronidazo le 500 mg tablet TAKE 1 TABLET BY MOUTH AT 2PM, 3PM, AND 10PM THE DAY BEFORE SURGERY metronidazo le 500 mg tablet TAKE 1 TABLET BY MOUTH AT 2PM, 3PM, AND 10PM THE DAY BEFORE SURGERY No metronidaz ole 500 mg tablet TAKE 1 TABLET BY MOUTH AT 2PM, 3PM, AND 10PM THE DAY BEFORE SURGERY [facility] neomycin 500 mg tablet TAKE 2 TABLETS BY MOUTH AT 2PM,3PM AND 10PM, THE DAY BEFORE SURGERY neomycin 500 mg tablet TAKE 2 TABLETS BY MOUTH AT 2PM,3PM AND 10PM, THE DAY BEFORE SURGERY No neomycin 500 mg tablet TAKE 2 TABLETS BY MOUTH AT 2PM,3PM AND 10PM, THE DAY BEFORE SURGERY [facility] nystatin 100,000 unit/gram topical cream APPLY 1 APPLICATION EXTERNALLY TWICE A DAY FOR 10 DAYS nystatin 100,000 unit/gram topical cream APPLY 1 APPLICATION EXTERNALLY TWICE A DAY FOR 10 DAYS No nystatin 100,000 unit/gram topical cream APPLY 1 APPLICATIO N EXTERNALLY TWICE A DAY FOR 10 DAYS [facility] Suprep Bowel Prep Kit 17.5 gram-3.13 gram-1.6 gram oral solution TAKE 1 BOTTLE BY MOUTH 12PM (NOON), THE DAY BEFORE SURGERY Suprep Bowel Prep Kit 17.5 gram-3.13 gram-1.6 gram oral solution TAKE 1 BOTTLE BY MOUTH 12PM (NOON), THE DAY BEFORE SURGERY No Suprep Bowel Prep Kit 17.5 gram-3.13 gram-1.6 gram oral solution TAKE 1 BOTTLE BY MOUTH 12PM (NOON), THE DAY BEFORE SURGERY [facility] Vital Signs Vital Name Observation Time Observation Value Comments S ource Height 2022-02-04 00:00:00 64 [in_i] [facility] BMI (Body Mass Index) 2022-02-04 00:00:00 27.5 kg/m2 [facility] Body Weight 2022-02-04 00:00:00 160 [lb_av] [facility] Systolic blood pressure 2019-10-28 14:19:00 145 mm[Hg] [facility] Diastolic blood pressure 2019-10-28 14:19:00 65 mm[Hg] [facility] Heart rate 2019-10-28 14:19:00 64 /min [facility] Body temperature 2019-10-28 14:19:00 37.5 Danielle [facility] Respiratory rate 2019-10-28 14:19:00 18 /min [facility] Body weight 2019-10-28 14:19:00 73.936 kg [facility] BMI 2019-10-28 14:19:00 27.98 kg/m2 [facility] Oxygen saturation in Arterial blood by Pulse oximetry 2019-10-28 14:19:00 97 /min [facility] Systolic blood pressure 2019-10-28 14:19:00 145 mm[Hg] [facility] Diastolic blood pressure 2019-10-28 14:19:00 65 mm[Hg] [facility] Heart rate 2019-10-28 14:19:00 64 /min [facility] Body temperature 2019-10-28 14:19:00 37.5 Danielle [facility] Respiratory rate 2019-10-28 14:19:00 18 /min [facility] Body weight 2019-10-28 14:19:00 73.936 kg [facility] BMI 2019-10-28 14:19:00 27.98 kg/m2 [facility] Oxygen saturation in Arterial blood by Pulse oximetry 2019-10-28 14:19:00 97 /min [facility] Pulse 2024-01-13 16:31:00 49 /min Systolic BP 2024-01-13 16:31:00 167 mm[Hg] Diastolic BP 2024-01-13 16:31:00 78 mm[Hg] Weight and Height tracking panel 2024-01-13 16:31:00 Height 2024-01-13 16:31:00 162.56 cm Weight 2024-01-13 16:31:00 68.95 kg BMI (Body Mass Index) 2024-01-13 16:30:59 26.09 kg/m2 Pulse 2023-10-28 20:43:00 55 /min Systolic BP 2023-10-28 20:43:00 174 mm[Hg] Diastolic BP 2023-10-28 20:43:00 78 mm[Hg] Weight and Height tracking panel 2023-10-28 20:43:00 Height 2023-10-28 20:43:00 162.56 cm Weight 2023-10-28 20:43:00 67.59 kg BMI (Body Mass Index) 2023-10-28 20:42:59 25.58 kg/m2 Systolic (mm Hg) 2023-06-04 14:52:00 [facility] Diastolic (mm Hg) 2023-06-04 14:52:00 [facility] Heart Rate 2023-06-04 14:52:00 [facility] Height 2023-06-04 14:52:00 5 [ft_i] [facility] Weight 2023-06-04 14:52:00 [facility] BMI Calculated 2023-06-04 14:52:00 [facility] Systolic (mm Hg) 2023-03-17 14:03:00 [facility] Diastolic (mm Hg) 2023-03-17 14:03:00 [facility] Heart Rate 2023-03-17 14:03:00 [facility] Height 2023-03-17 14:03:00 5 [ft_i] [facility] Weight 2023-03-17 14:03:00 [facility] BMI Calculated 2023-03-17 14:03:00 [facility] Systolic (mm Hg) 2023-01-26 20:41:00 [facility] Diastolic (mm Hg) 2023-01-26 20:41:00 [facility] Heart Rate 2023-01-26 20:41:00 [facility] Jun Height 2023-01-26 20:41:00 5 [ft_i] [facility] Weight 2023-01-26 20:41:00 [facility] Jun BMI Calculated 2023-01-26 20:41:00 [facility] Systolic (mm Hg) 2023-01-08 18:29:00 [facility] Diastolic (mm Hg) 2023-01-08 18:29:00 [facility] Heart Rate 2023-01-08 18:29:00 [facility] Height 2023-01-08 18:29:00 5 [ft_i] [facility] Weight 2023-01-08 18:29:00 [facility] Jun BMI Calculated 2023-01-08 18:29:00 [facility] Systolic (mm Hg) 2022-04-20 20:25:00 [facility] Diastolic (mm Hg) 2022-04-20 20:25:00 [facility] Respitory Rate 2022-04-20 20:25:00 [facility] Respitory Rate 2022-04-20 19:45:00 [facility] Respitory Rate 2022-04-20 19:30:00 [facility] Systolic (mm Hg) 2022-04-20 19:30:00 [facility] Diastolic (mm Hg) 2022-04-20 19:30:00 [facility] Systolic (mm Hg) 2022-04-20 19:15:00 [facility] Diastolic (mm Hg) 2022-04-20 19:15:00 [facility] Heart Rate 2022-04-20 16:10:00 [facility] Height 2022-04-20 14:08:00 162.56 cm [facility] Weight 2022-04-20 14:08:00 [facility] Jun BMI Calculated 2022-04-20 14:08:00 [facility] Height 2022-04-10 19:58:00 162.56 cm [facility] Jun Weight 2022-04-10 19:58:00 [facility] Jun BMI Calculated 2022-04-10 19:58:00 [facility] Procedures Procedure Date / Time Performed Performing Clinician Source Documentation of current medications (procedure); Performed: 2024-01-13; Dr Luis Amos; Endocrinology & Osteoporosis [facility]; 01/13/2024 2024-01-13 11:40:00 Lifestyle education regarding diet (procedure); Performed: 2024-01-13; Dr Luis Amos; Endocrinology & Osteoporosis [facility]; 01/13/2024 2024-01-13 05:00:00 Documentation of current medications (procedure); Performed: 2023-11-26; Dr Silvino Bhardwaj MD; Endocrinology & Osteoporosis [facility]; 11/30/2023 2023-11-26 09:00:00 Documentation of current medications (procedure); Performed: 2023-10-28; Dr Luis Amos; Endocrinology & Osteoporosis [facility]; 10/28/2023 2023-10-28 15:00:00 Lifestyle education regarding diet (procedure); Performed: 2023-10-28; Dr Luis Amos; Endocrinology & Osteoporosis [facility]; 10/28/2023 2023-10-28 05:00:00 CT, abdomen + pelvis, w/ contrast 2022-02-04 00:00:00 [facility] NOTICE OF PRIVACY PRACTICES 2019-10-28 14:53:46 Doctor Unassigned, [place] [facility] URINALYSIS 2019-10-28 14:29:00 Lavinia Berry [facility] CONSENT/REFUSAL FOR DIAGNOSIS AND TREATMENT 2019-10-28 14:15:17 Doctor Unassigned, [place] [facility] Hysterectomy (Ovaries Remain) 1969-08-02 00:00:00 [facility] Tonsillectomy 1954-08-02 00:00:00 [facility] Cystectomy [facility] n Repair of vaginal fistula [facility] Hysterectomy [facility] Plan of Care Planned Activity Planned Date Details Comments Source Future Appointment 2027-02-11 00:00:00 Edwin Armond lyons, [address] [address] [facility]; [address], [place] [address] [facility] Instructions [facility] En[facility] Start Date/Time End Date/Time Encounter Type Admission Type Attending [facility] Care Department Encounter ID Source 2024-01-13 00:00:00 2024-01-13 23:59:59 Outpatient Encounter for "check-up" (procedure ) EOCT EOCT [id number] 2023-12-16 09:30:00 2023-12-16 09:30:00 Outpatient MHIE JEWEL [id number] David Barahona 2023-11-26 00:00:00 2023-11-26 23:59:59 Outpatient Encounter for "check-up" (procedure ) EOCT EOCT [id number] 2023-10-28 00:00:00 2023-10-28 23:59:59 Outpatient Encounter for "check-up" (procedure ) EOCT EOCT [id number] 2023-06-04 15:15:00 2023-06-05 04:59:59 Outpatient [facility] [id number] David Barahona 2023-03-17 14:45:00 2023-03-18 04:59:59 Outpatient [facility] [id number] David Barahona 2023-03-03 18:30:00 2023-03-03 18:30:00 Ambulatory Pre-Reg [facility] [id number] David Barahona 2023-01-26 20:30:00 2023-01-27 04:59:59 Outpatient [facility] [id number] David Barahona 2023-01-15 20:30:00 2023-01-16 04:59:59 Outpatient [facility] [id number] David Barahona 2023-01-15 18:00:00 2023-01-15 18:00:00 Ambulatory Pre-Reg [facility] [id number] David Barahona 2023-01-08 18:30:00 2023-01-09 04:59:59 Outpatient [facility] [id number] David Barahona 2022-06-09 00:00:00 2022-06-09 00:00:00 Outpatient GC_BCSS_Isa acson_T5 [facility] [id number] [facility] 2022-06-09 00:00:00 2022-06-09 00:00:00 Alba Jefferson MD: [id number] [address], [address] [address], [place] [address] , Ph. [facility] - GC_BCSS_[facility] Office [id number] [facility] 2022-06-05 00:00:00 2022-06-05 00:00:00 Outpatient GC_BCSS_Isa acson_T5 [facility] [id number] [facility] 2022-06-03 00:00:00 2022-06-03 00:00:00 Outpatient GC_BCSS_Isa acson_T5 [facility] [id number] [facility] 2022-05-13 00:00:00 2022-05-13 00:00:00 Outpatient GC_BCSS_Isa acson_T5 [facility] [id number] [facility] 2022-05-13 00:00:00 2022-05-13 00:00:00 Edwin Blevins MD: [id number] [address], [address], [place] [address] , Ph. [facility] - GC_BCSS_[place] Office [id number] [facility] 2022-05-12 00:00:00 2022-05-12 00:00:00 Outpatient GC_BCSS_Isa acson_T5 PRIV PRIV [id number] [facility] 2022-05-05 00:00:00 2022-05-05 00:00:00 Outpatient GC_BCSS_Isa acson_T5 PRIV PRIV [id number] [facility] 2022-05-04 00:00:00 2022-05-04 00:00:00 Outpatient GC_BCSS_Isa acson_T5 PRIV PRIV [id number] [facility] 2022-04-20 18:17:00 2022-04-20 20:22:00 Observatio n nullFlavo r [facility] [id number] [facility] 2022-04-20 13:17:00 2022-04-20 15:22:00 [facility] [id number] [facility] 2022-04-17 00:00:00 2022-04-17 00:00:00 Outpatient GC_BCSS_Isa acson_T5 PRIV PRIV [id number] [facility] 2022-04-03 00:00:00 2022-04-03 00:00:00 Outpatient GC_BCSS_Isa acson_T5 PRIV PRIV [id number] [facility] 2022-04-01 00:00:00 2022-04-01 00:00:00 Outpatient GC_BCSS_Isa acson_T5 PRIV PRIV [id number] [facility] 2022-03-18 00:00:00 2022-03-18 00:00:00 Outpatient GC_BCSS_Isa acson_T5 PRIV PRIV [id number] [facility] 2022-03-03 00:00:00 2022-03-03 00:00:00 Outpatient GC_BCSS_Isa acson_T5 PRIV PRIV [id number] [facility] 2022-02-27 00:00:00 2022-02-27 00:00:00 Outpatient GC_BCSS_Isa acson_T5 PRIV PRIV [id number] [facility] 2022-02-09 10:51:00 2022-02-09 10:51:00 Outpatient GC_BCSS_Isa acson_T5 PRIV PRIV [id number] [facility] 2022-02-06 12:34:00 2022-02-06 12:34:00 Outpatient GC_BCSS_Isa acson_T5 PRIV PRIV [id number] [facility] 2022-02-04 02:57:00 2022-02-04 02:57:00 Outpatient GC_BCSS_Isa acson_T5 PRIV PRIV [id number] [facility] 2022-02-04 00:00:00 2022-02-04 00:00:00 Outpatient Alba Jefferson [facility] PRIV [id number] 2022-02-04 00:00:00 2022-02-04 00:00:00 Alba Jefferson MD: [address] [address], [address] [address], [place] [address] , Ph. [facility] - GC_BCSS_[place] Office [id number] [facility] 2022-01-29 05:43:00 2022-01-29 05:43:00 Outpatient GC_BCSS_Isa acson_T5 PRIV PRIV [id number] [facility] 2022-01-12 05:21:00 2022-01-12 05:21:00 Outpatient GC_BCSS_Isa acson_T5 PRIV PRIV [id number] [facility] 2022-01-09 11:10:00 2022-01-09 11:10:00 Outpatient GC_BCSS_Isa acson_T5 PRIV PRIV [id number] [facility] 2019-10-28 09:21:49 2019-10-28 10:22:00 Emergency Lavinia Berry [facility] [id number] 2019-10-28 09:21:49 2019-10-28 10:22:00 Emergency Lavinia Berry [facility] [id number] [facility] 2019-10-28 09:21:49 2019-10-28 09:21:49 Emergency X LAVINIA BERRY [facility] ERT [id number] [facility] Results Test Description Test Time Test Comments Results Result Co mments Source [facility] [id number] 18:47:00* Test Item Value Reference Range Interpretation Comme nts Sed Rate (test code = Sed Rate) 6 [id number] 18:47:00* Test Item Value Reference Range Interpretation Comme nts Copper Lvl (test code = Copper Lvl) 118 70-175 [facility]MeakorqIMEWJHTAJM6297-34-41 18:47:00* Test Item Value Reference Range Interpretation Comme nts Ceruloplasmin (test code = Ceruloplasmin) 29 18-53 [facility] HospitalKiibpybMSQXJNJFEF0210-84-48 14:08:00* Test Item Value Reference Range Interpretation Comme nts Coronavirus (COVID-19) [place] (test code = Coronavirus (COVID-19) [place]) Not Detected (04/20/22 9:08 AM) [facility] H[id number] 14:57:00* Test Item Value Reference Range Interpretation Comme nts APPEARANCE (test code = 9728674630) Turbid Clear A COLOR (test code = 6189513069) Viki Yellow A PH (test code = 9083212427) 4.8-8.0 SP GRAVITY (test code = 4195021440) 1.003-1.030 GLU U QUAL (test code = 8191091579) Normal Normal BLOOD (test code = 9212937991) 3+ Negative A KETONES (test code = 6090938547) Negative Negative PROTEIN (test code = 2887-8) 100 mg/dL Negative A UROBILIN (test code = 5109527771) Normal Normal BILIRUBIN (test code = 7580962435) Negative Negative NITRITE (test code = 1270946493) Positive Negative A [place] (test code = 2857424102) 250/uL Negative A RBC/HPF (test code = 9287338316) >182 See_Comment H [Automated messa ge] The system which generated this result transmitted reference range: 0 - 3 HPF. The reference range was not used to interpret this result as normal/abnormal. WBC/HPF (test code = 6576191009) >182 See_Comment H [Automated messa ge] The system which generated this result transmitted reference range: 0 - 5 HPF. The reference range was not used to interpret this result as normal/abnormal. BACTERIA (test code = 4418213096) Many Negative A MUCOUS (test code = 5487732193) Moderate Negative LPF A WBC CLUMPS (test code = 1295390604) >182 See_Comment H [Automated messa ge] The system which generated this result transmitted reference range: <=1 HPF. The reference range was not used to interpret this result as normal/abnormal. JEWEL EPITH (test code = 7155130864) See_Comment H [Automated messa ge] The system which generated this result transmitted reference range: <=1 HPF. The reference range was not used to interpret this result as normal/abnormal. Lab Interpretation (test code = 57546-1) Abnormal [facility]
[2024-11-11] MEDS ORDERED: ONDANSETRON 4 MG/2 ML VIAL ONE (04:01)
[2024-11-11] MEDS ORDERED: MORPHINE 4 MG/ML SYR ONE (04:01)
[2024-11-11 04:52] LABS: Absolute Basophils 0.1 K/uL (0-0.5); Absolute Lymphocytes (CBC) 0.8 K/uL (0.7-4.9); Absolute Monocytes 0.3 K/uL (0.1-1.3); Hemoglobin 13.4 g/dL (12.0-15.0); Lymphocytes % 7.7 % (15.3-44.8); MCH 30.7 pg (27.0-35.0); MCHC 34.4 g/dL (32.0-36.0); MCV 89.2 fL (80-100); MPV 8.8 fL (7.6-11.3); Monocytes % 2.9 % (3.3-12.3); Neutrophils % 88.4 % (41.7-73.7); Nucleated Red Blood Cells % 0.1 % (0-0); Platelets 618 thou/uL (152-406); RBC Red Blood Cell Count 4.37 M/uL (3.86-4.86); Red Cell Distribution Width 13.9 % (12.1-15.2)
[2024-11-11 04:55] LABS: ALT/SGPT 19 U/L (13-56); Albumin 3.5 g/dL (3.4-5.0); Albumin/Globulin Ratio 0.9 (1.1-1.8); Alkaline Phosphatase 67 U/L (45-117); Anion Gap 9.7 mEq/L (5.0-15.0); BUN Blood Urea Nitrogen 26 mg/dL (7-18); Bicarbonate 27 mEq/L (21-32); Bilirubin Total 0.9 mg/dL (0.2-1.0); Globulin 3.7 g/dL (2.3-3.5); Glomerular Filtration Rate 50 ml/min (=/>90); Glucose Level 123 mg/dL (74-106); Lipase 43 U/L (13-75); Potassium 3.7 mEq/L (3.5-5.1); Protein, Total 7.2 g/dL (6.4-8.2); Sodium Level 142 mEq/L (136-145)
[2024-11-11 04:58] LABS: AST/SGOT < 10 U/L (15-37)
[2024-11-11 05:35] LABS: Band Neutrophils 12 % (0-1); Differential Total Cells Count 100; Lymphocytes 9 % (15-42); Monocytes 3 % (0-10); Segmented Neutrophils 76 % (40-80)
[2024-11-11 05:36] LABS: Blood Morphology Comment NOT SEEN (NOT SEEN); Platelet Estimate ADEQ
--- NOTE | 2024-11-11 08:33 | RAD REPORT ---
EXAMINATION: CT ABDOMEN AND PELVIS WITH CONTRAST CLINICAL INDICATION: Abdominal pain TECHNIQUE: CT abdomen and pelvis was performed, after the administration of 100 cc Isovue-300.. Sagit payam and coronal reconstructions were obtained. One or more of the following dose reduction techniques were used: Automated exposure control, adjustment of the mA and kV according to patient si ze, and iterative reconstruction. Unless otherwise specified, incidental findings do not require dedicated imaging follow-up. [id number]. Oral contrast was not given which limits evaluation of bowel and appendix. COMPARISON: .2021 FINDINGS: Liver, spleen, pancreas, adrenals and kidneys appear unremarkable No evidence of diverticulitis. Normal appendix. Hysterectomy. No adnexal mass. Small amount of free fluid. Small umbilical hernia contains a portion of nondilated small bowel. Mild diastases rectus abdominis muscles. : IMPRESSION: Small umbilical hernia contains a portion of nondilated small bowel
--- NOTE | 2024-11-11 08:39 | ER ---
Nurse's Notes [facility] Name: Stefany Skaggs Age: 79 yrs Sex: Female : 1945 Arrival Date: 11/11/2024 Time: 02:44 Bed 10 Private MD: Diagnosis: Abdominal pain, unspecified Presentation: 11/11 03:58 Chief complaint: Patient states: right lower quadrant pain X1 month. Coronavirus lg3 screen: Client denies travel out of the [place] in the last 14 days. At this time, the client does not indicate any symptoms associated with coronavirus-19. Ebola Screen: No symptoms or risks identified at this time. Initial Sepsis Screen: Does the patient meet any 2 criteria? No. Patient's initial sepsis screen is negative. Does the patient have a suspected source of infection? No. Patient's initial sepsis screen is negative. Risk Assessment: Do you want to hurt yourself or someone else? Patient reports no desire to harm self or others. Onset of symptoms is unknown. 03:58 Method Of Arrival: Ambulatory lg3 03:58 Acuity: LAUREEN 3 lg3 Triage Assessment: 04:00 General: Appears in no apparent distress. uncomfortable, Behavior is calm, cooperative. lg3 Pain: Complains of pain in right lower quadrant. EENT: No deficits noted. No signs and/or symptoms were reported regarding the EENT system. Neuro: No deficits noted. Dc Agitation-Sedation Scale (RASS): 0 - Alert and Calm Level of Consciousness is awake, alert, obeys commands, Oriented to person, place, time, situation. Cardiovascular: No deficits noted. Denies chest pain, shortness of breath, Capillary refill < 3 seconds Clubbing of nail beds is absent JVD is absent Patient's skin is warm and dry. Respiratory: No deficits noted. Airway is patent Respiratory effort is even, unlabored, Respiratory pattern is regular, symmetrical. GI: Abdomen is flat, distended, Bowel sounds present X 4 quads. Abd is soft X 4 quads Reports lower abdominal pain. : No deficits noted. No signs and/or symptoms were reported regarding the genitourinary system. Derm: No deficits noted. No signs and/or symptoms reported regarding the dermatologic system. Skin is intact, is healthy with good turgor, Skin is dry, Skin is normal, Skin temperature is warm. Musculoskeletal: No deficits noted. No signs and/or symptoms reported regarding the musculoskeletal system. Circulation, motion, and sensation intact. Range of motion: intact in all extremities. Historical: - Allergies: 04:00 Cipro; lg3 04:00 Pneumovax 23 (PPSV); lg3 - Home Meds: 04:00 None [Active]; lg3 - PMHx: 04:00 Heart Arrythmia; Seizures; lg3 - PSHx: 04:00 Heart ablation; lg3 - Immunization history:: Adult Immunizations up to date. - Infectious Disease History:: Denies. - Social history:: Smoking status: Patient denies any tobacco usage or history of. Patient/guardian denies using alcohol, street drugs. Screenin:13 [facility] ED Fall Risk Assessment (Adult) History of falling in the last 3 months, lg3 including since admission No falls in past 3 months (0 pts) Confusion or Disorientation No (0 pts) Intoxicated or Sedated No (0 pts) Impaired Gait No (0 pts) Mobility Assist Device Used No (0 pt) Altered Elimination No (0 pt) Score/Fall Risk Level 0 - 2 = Low Risk Oriented to surroundings, Maintained a safe environment, Educated pt \T\ family on fall prevention, incl call for assistance when getting out of bed, Assessed \T\ reinforced patient's understanding of fall precautions. Abuse screen: Denies threats or abuse. Denies injuries from another. Nutritional screening: No deficits noted. Tuberculosis screening: No symptoms or risk factors identified. Assessment: 04:13 General: see triage assessment. lg3 Vital Signs: 03:58 BP 154 / 63; Pulse 53; Resp 16 S; Temp 97.6(TE); Pulse Ox 97% on R/A; Weight 65.77 kg lg3 (R); Height 5 ft. 4 in. (R); Pain 10/10; 03:58 Body Mass Index 24.89 (65.77 kg, 162.56 cm) lg3 03:58 Pain Scale: Adult lg3 ED Course: 02:48 Patient arrived in ED. jj6 04:00 Triage completed. lg3 04:00 Arm band placed on right wrist. lg3 04:13 Patient has correct armband on for positive identification. Placed in gown. Bed in low lg3 position. Call light in reach. Side rails up X 1. Client placed on continuous cardiac and pulse oximetry monitoring. NIBP monitoring applied. Door closed. Noise minimized. Warm blanket given. Pillow given. 04:14 Inserted saline lock: 20 gauge in right antecubital area, using aseptic technique. hw Blood collected. Flushed with 10 mL NS. 04:15 CBC with Diff Sent. hw 04:15 CMP Sent. hw 04:15 Lipase Sent. hw 04:33 Diaz Sherman MD is Attending Physician. sp3 06:11 CT Abd/Pelvis - IV Contrast Only In Process Unspecified. EDMS 06:57 Attending Physician role handed off by Diaz Sherman MD rt 06:57 Hosea Proctor MD is Attending Physician. rt Administered Medications: 04:16 Drug: Ondansetron IVP 4 mg IVP once; over 2 minutes Route: IVP; Site: right antecubital;lg3 04:16 Drug: morphine IVP or IV 4 mg IVP once over 4 mins Route: IVP; Infused Over: 4 mins; lg3 Site: right antecubital; Outcome: 08:39 Discharge ordered by MD. rt 08:52 Patient left the ED. hb Signatures: Dispatcher [employer] EDAZ Adeline Rinaldi RN RN Aleena Lucas RN RN lg3 Diaz Sherman MD MD sp3 Delilah Sheehan [facility] Hosea Proctor MD MD rt Jimenez Herrmannley
--- NOTE | 2024-11-11 08:39 | EDPHYS ---
Physician Documentation [facility] Name: Stefany Skaggs Age: 79 yrs Sex: Female : 1945 Arrival Date: 11/11/2024 Time: 02:44 Bed 10 Private MD: ED Physician Hosea Proctor HPI: 11/11 05:13 This 79 yrs old Female presents to ER via Ambulatory with complaints of Abdominal Pain, sp3 Pelvic Pain. 05:13 79-year-old female with prior history of heart arrhythmia and no ongoing medical sp3 problems, history of partial hysterectomy with no other abdominal surgeries now presents with off-and-on right lower quadrant abdominal pain for 1 month. Patient arrived with sharp pain interiors which is now somewhat improved. She denies any fever, chest pain, shortness breath, URI symptoms, vomiting, diarrhea, back pain, dysuria, urinary frequency, syncope, near-syncope, bleeding, rash, or any other signs or symptoms on ROS at this time. No bad food, sick contacts or prolonged immobilization.. Historical: - Allergies: 04:00 Cipro; lg3 04:00 Pneumovax 23 (PPSV); lg3 - Home Meds: 04:00 None [Active]; lg3 - PMHx: 04:00 Heart Arrythmia; Seizures; lg3 - PSHx: 04:00 Heart ablation; lg3 - Immunization history:: Adult Immunizations up to date. - Infectious Disease History:: Denies. - Social history:: Smoking status: Patient denies any tobacco usage or history of. Patient/guardian denies using alcohol, street drugs. ROS: 05:14 Constitutional: Negative for fever, chills, and weight loss, Eyes: Negative for injury, sp3 pain, redness, and discharge, ENT: Negative for injury, pain, and discharge, Neck: Negative for injury, pain, and swelling, Cardiovascular: Negative for chest pain, palpitations, and edema, Respiratory: Negative for shortness of breath, cough, wheezing, and pleuritic chest pain, Back: Negative for injury and pain, MS/Extremity: Negative for injury and deformity, Skin: Negative for injury, rash, and discoloration, Neuro: Negative for headache, weakness, numbness, tingling, and seizure, Psych: Negative for depression, anxiety, suicide ideation, homicidal ideation, and hallucinations, Allergy/Immunology: Negative for hives, rash, and allergies, Endocrine: Negative for neck swelling, polydipsia, polyuria, polyphagia, and marked weight changes, Hematologic/Lymphatic: Negative for swollen nodes, abnormal bleeding, and unusual bruising, Exam: 05:17 Constitutional: This is a well developed, well nourished patient who is awake, alert, sp3 and in no acute distress. Head/Face: Normocephalic, atraumatic. Eyes: Pupils equal round and reactive to light, extra-ocular motions intact. Lids and lashes normal. Conjunctiva and sclera are non-icteric and not injected. Cornea within normal limits. Periorbital areas with no swelling, redness, or edema. Neck: Trachea midline, no thyromegaly or masses palpated, and no cervical lymphadenopathy. Supple, full range of motion without nuchal rigidity, or vertebral point tenderness. No Meningismus. Chest/axilla: Normal chest wall appearance and motion. Nontender with no deformity. No lesions are appreciated. Cardiovascular: Regular rate and rhythm with a normal S1 and S2. No gallops, murmurs, or rubs. Normal PMI, no JVD. No pulse deficits. Respiratory: Lungs have equal breath sounds bilaterally, clear to auscultation and percussion. No rales, rhonchi or wheezes noted. No increased work of breathing, no retractions or nasal flaring. Back: No spinal tenderness. No costovertebral tenderness. Full range of motion. Skin: Warm, dry with normal turgor. Normal color with no rashes, no lesions, and no evidence of cellulitis. MS/ Extremity: Pulses equal, no cyanosis. Neurovascular intact. Full, normal range of motion. Neuro: Awake and alert, GCS 15, oriented to person, place, time, and situation. Cranial nerves II-XII grossly intact. Motor strength 5/5 in all extremities. Sensory grossly intact. Cerebellar exam normal. Normal gait. Psych: Awake, alert, with orientation to person, place and time. Behavior, mood, and affect are within normal limits. 05:17 Abdomen/GI: Mild right lower quadrant abdominal pain to palpation after morphine. No peritoneal signs noted currently and vital signs are normal., Vital Signs: 03:58 BP 154 / 63; Pulse 53; Resp 16 S; Temp 97.6(TE); Pulse Ox 97% on R/A; Weight 65.77 kg lg3 (R); Height 5 ft. 4 in. (R); Pain 10/10; 03:58 Body Mass Index 24.89 (65.77 kg, 162.56 cm) lg3 03:58 Pain Scale: Adult lg3 MDM: 05:07 Medical Screening Exam initiated sp3 05:17 Data reviewed: vital signs, nurses notes, lab test result(s), radiologic studies. ED sp3 course: 79-year-old female with right lower quadrant abdominal pain now somewhat resolved. Symptoms have been going on for over 1 month. Differential diagnosis includes functional abdominal pain, constipation, appendicitis smoldering, pathology, CHEMICAL PROCESSOR pathology, colitis, among others. Workup include CT scan of the abdomen pelvis, general labs, UA and general supportive care. Disposition pending workup and patient course with signout to daytime physician for re-evaluation and final disposition.. 10:40 Differential diagnosis: Bowel obstruction, nonspecific abdominal pain, appendicitis, rt UTI. Consideration of Admission/Observation Escalation of care including admission/observation considered. I considered the following discharge prescriptions or medication management in the emergency department Medications were administered in the Emergency Department. See MAR. Independent interpretation of the following test(s) in the Emergency Department CT Scan: My interpretation is No bowel obstruction seen on my CT scan images. Counseling: I had a detailed discussion with the patient and/or guardian regarding the historical points, exam findings, and any diagnostic results supporting the discharge/admit diagnosis, lab results, radiology results, the need for outpatient follow up, to return to the emergency department if symptoms worsen or persist or if there are any questions or concerns that arise at home. Response to treatment: the patient's symptoms have markedly improved after treatment. 11/11 04:05 Order name: CBC with Diff; Complete Time: 08:34 lg3 11/11 04:05 Order name: CMP; Complete Time: 08:34 lg3 11/11 04:05 Order name: Lipase; Complete Time: 08:34 lg3 11/11 04:58 Order name: Manual Differential; Complete Time: 08:34 EDMS 11/11 04:05 Order name: CT Abd/Pelvis - IV Contrast Only; Complete Time: 08:34 lg3 11/11 04:05 Order name: IV Saline Lock; Complete Time: 04:15 lg3 11/11 04:05 Order name: Labs collected and sent; Complete Time: :15 lg3 Administered Medications: 04:16 Drug: Ondansetron IVP 4 mg IVP once; over 2 minutes Route: IVP; Site: right antecubital;lg3 04:16 Drug: morphine IVP or IV 4 mg IVP once over 4 mins Route: IVP; Infused Over: 4 mins; lg3 Site: right antecubital; Disposition Summary: 11/11/24 08:39 Discharge Ordered Notes: Location: Home rt Problem: new rt Symptoms: have improved rt Condition: Stable rt Diagnosis - Abdominal pain, unspecified rt Followup: rt - With: Private Physician - When: 2 - 3 days - Reason: Discharge Instructions: - Discharge Summary Sheet rt - Abdominal Pain, Adult rt Forms: - Medication Reconciliation Form rt - Antibiotic Education rt - Prescription Opioid Use rt - Patient Portal Instructions rt - Leadership Thank You Letter rt Signatures: Dispatcher [employer] EDAleena Alonso RN RN lg3 Diaz Sherman MD MD sp3 Hosea Proctor MD MD rt Corrections: (The following items were deleted from the chart) 04:05 04:05 CBC+H.LAB.BRZ ordered. EDMS EDMS 04:05 04:05 COMPREHENSIVE METABOLIC PANEL+C.LAB.BRZ ordered. EDMS EDMS 04:05 04:05 LIPASE+C.LAB.BRZ ordered. EDMS EDMS 04:05 04:05 Urinalysis+U.LAB.BRZ ordered. EDMS EDMS 04:05 04:05 Abdomen Pelvis W Con+CT.RAD.BRZ ordered. EDMS EDMS
[2024-11-11 09:00] VITALS: BP 154/63; TEMP 97.6; O2SAT 97
== END 2024-11-11 08:52 | disposition home or self-care (01) ==
LOC: ER 02:44
DX: R10.31 Right lower quadrant pain (principal)
CPT/HCPCS: 85025; 36415; 83690; 80053; 74177; 96375; 96374; 99284; Q9967; J2405